=== PATIENT | female | born 1985 | race Caucasian/White ===

== ENCOUNTER 2025-02-20 10:14 | Emergency (ER) | payer OTHER, SELFPAY ==
--- NOTE | ~2025-02-20 | CT_ITS ---
EXAMINATION: CT brain wo con DATE: 02/20/2025 11:44 INDICATION: Hypertension. Headache. TECHNIQUE: Computed tomography (CT) of the head was performed without intravenous contrast. Sagittal and coronal reconstructions were performed. Automated exposure control and iterative reconstruction t echnique were employed. The dose-length product was 605.33 mGy-cm. COMPARISON: None FINDINGS: No acute intracranial hemorrhage, acute infarction or abnormal extra axial fluid collection. Ventricl es are normal and symmetric. No mass/mass effect. The orbits, paranasal sinuses and mastoid air cells are normal. IMPRESSION: 1. Normal head CT. Reviewed, dictated and finalized at location A. IMPRESSION: 1. Normal head CT.
--- NOTE | ~2025-02-20 | XR_ITS ---
CHEST RADIOGRAPH, PA AND LATERAL CLINICAL HISTORY: concern for CHF . COMPARISON: None available TECHNIQUE: PA and lateral views of the chest. FINDINGS The cardiomediastinal silhouette is unremarkable. The lungs are clear. IMPRESSION: No focal infiltrate or effusion. Reviewed, dictated and finalized at location A.
[2025-02-20 10:26] VITALS: BP 236/130; PULSE 74; RESP 18; TEMP 36.9; O2SAT 100
--- OUTSIDE RECORDS SUMMARY | 2025-02-20 10:30 | XMS_ITS | Clinical Summary ---
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 Role Phone None, Provider MD Primary Care Provider Unavaila ble Allergies Active Allergy Reactions Criticality Noted Date Comments Magnesium Sulfate Hives 01/09/2018 Morphine Vomiting 01/09/2018 Medications No known medications Family History Medical History Relation Comments Cancer Father lymph node and b [place] Heart Disease Father Hypertension Father Heart Disease Mother Relation Status Comments Father Alive Mother Alive Social History Tobacco Use Types Packs/Day Years Used Date Smoking Tobacco: Every Day Cigarettes Smokeless Tobacco: Never Alcohol Use Standard Drinks/Week Comments Not Currently 0 (1 standard drink = 0.6 oz pur e alcohol) Comments No Sex and Gender Information Value Date Recorded Sex Assigned at Not on file Legal Sex Female 7:29 PM CDT Gender Identity Not on file Sexual Orientation Not on file Last Filed Vital Signs Vital Sign Reading Time Taken Comments Blood Pressure 179/103 06/23/2021 11:17 AM CDT Pulse 76 06/23/2021 11:17 AM CDT Temperature 36.4 C (97.5 F) 06/23/2021 11:17 AM CDT Respiratory Rate 16 06/23/2021 11:17 AM CDT Oxygen Saturation 100% 06/23/2021 11:17 AM CDT Inhaled Oxygen Concentration - - Weight 83.9 kg (185 lb) 06/23/2021 11:17 AM CDT Height 167.6 cm (5' 6) 06/23/2021 11:17 AM CDT Body Mass Index 29.86 06/23/2021 11:17 AM CDT Plan of Treatment Health Maintenance Due Date Last Done Comments Cervical Cancer Screening Pa p Smear (Age 30 to 64) Every 3 Years 1985 Annual Physical 1988 Hepatitis C 12/27/2003 DTaP, Tdap and Td Vaccines ( 1 - Tdap) 2004 Hepatitis B Vaccines (1 of 3 - 19+ 3-dose series) 2004 Pneumococcal Vaccine: Pediat rics (0 to 5 Years) and At-Risk Patients (6 to 49 Years) (1 of 2 - PCV) 2004 Cervical Cancer Screening Pa p with HPV Testing (Age 30 to 64) Every 5 Years 12/27/2015 Cervical Cancer Screening with HPV 12/27/2015 COVID-19 Vaccine (1 - 2023-2 5 season) 2024 HPV Vaccines Aged Out No longer eligi ble based on patient's age to complete this topic Meningococcal B Vaccine Aged Out No l onger eligible based on patient's age to complete this topic Meningococcal Vaccine Aged Out No conrad kiersten eligible based on patient's age to complete this topic RSV Immunizations Under 20 Months Aged Out No longer eligible based on patient's age to complete this topic Insurance [employer] Care Teams Ice Hockey Coach Relationship Specialty Start Date End Date None, Provider, PCP - General 06/23/21
--- OUTSIDE RECORDS SUMMARY | 2025-02-20 10:30 | XMS_ITS | Clinical Summary ---
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 Gender Identity Not on file Sexual Orientation Not on file Plan of Treatment Health Maintenance Due Date Last Done Comments Hepatitis C Virus (HCV) Screening 1985 Hepatitis B Immunization (1 of 3 - 19+ 3-dose series) 2004 Pap Smear 2006 Cervical Cancer Screening (CCS) 12/27/2015 HPV/Cotest 12/27/2015 Influenza Immunization (#1) 2024 SARS-COV-2 Immunization ( season) 2024 Respiratory Syncytial Virus (RSV) Immunization (Adult) (1 - 1-dose 75+ series) 2060 DTaP/Tdap/Td Immunization Discontinued 03/16/2017 TdaP Immunization Completed 03/16/2017 Meningococcal Immunization (ACWY) Aged Out No longer eligible based on patient's age to complete this topic Pneumococcal Immunization Combined Aged Out No longer eligible b ased on patient's age to complete this topic Rotavirus Immunization Aged Out No lo nger eligible based on patient's age to complete this topic
--- OUTSIDE RECORDS SUMMARY | 2025-02-20 10:30 | XMS_ITS | Encounter Summary ---
Author Organization [facility] Care Team Providers Care Account Director Name Role Phone No, Physician Primary Care Provider [phone] Leola Newell MD Primary Care Provider [phone] Marianne Kovacs MD, Miguel Hale Primary Care Provide r Encounter Details Date Type Department Care Team (Latest Contact Info) Description 09/14/2016 Orders Only [facility] Provider, MD Nahid [address] [place] [id number] Social History Tobacco Use Types Packs/Day Years Used Date Smoking Tobacco: Never Assessed Comments Unknown Sex and Gender Information Value Date Recorded Sex Assigned at Not on file 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 Historical Provider Final Res ult documented in this encounter Visit Diagnoses Not on filedocumented in this encounter Care Teams Account Director Relationship Specialty Start Date End Date No, Physician PCP - General 06/24/21 06/24/21 Leola Newell MD [address] [place] [id number] PCP - General Internal Medicine 06/25/21 05/26/22 Miguel Lopes Jr., MD [address] [place] [id number] PCP - General Internal Medicine 05/27/22 documented as of this encounter
--- OUTSIDE RECORDS SUMMARY | 2025-02-20 10:30 | XMS_ITS | Clinical Summary ---
Author Organization [facility] Address [address] [place] [address] Care Team Providers Care Monologist Name Role Phone Marianne Kovacs MD, Miguel Hale Primary Care Provide r Allergies Active Allergy Reactions Criticality Noted Date Comments Magnesium Sulfate Hives Medium 01/09/2018 Hives Morphine Hives,Nausea And Vom iting,Shortness of breath,Urticaria,Vomiting High 12/09/2016 Hives Medications HYDROcodone-acetami nophen (NORCO) 7.5-325 mg per tablet 2 Active gabapentin (NEURONTIN) 300 mg capsule Take 1 capsule (300 mg total) by mouth 3 (three) times a day 30 capsule 1 2 Active ondansetron ODT (ZOFRAN-ODT) 4 mg disintegrating tablet Take 1 tablet (4 mg total) by mouth every 8 (eight) hours as needed for nausea or vomiting 20 tablet 2 Active cloNIDine (CATAPRES) 0.2 mg tablet Take 1 tablet (0.2 mg total) by mouth daily 20 tablet 2 Active losartan-hydrochlor othiazide (HYZAAR) 100-25 mg per tabletIndications:H ypertension secondary to other renal disorders Take 1 tablet by mouth daily 30 tablet 11 2 Active ketorolac (TORADOL) 10 mg tablet Take 1 tablet (10 mg total) by mouth every 6 (six) hours as needed for pain 10 tablet 5 Active lidocaine (LIDODERM) 5 % Place 1 patch on the skin daily for 12 hours Remove & discard patch within 12 hours or as directed by MD. 7 patch 5 Active Active Problems Problem Noted Date Diagnosed Date Lung nodules 05/20/2022 Assessment & Plan (05/20/2022 11:01 AM CDT): Awaiting gateway records to determine next step. This is reported by pt. Downing 05/20/2022 Assessment & Plan (05/20/2022 11:01 AM CDT): Diagnosed in ed yest, agree with dx, vesicles are apparent on physical exam Pain is /10, norco makes her too nauseous Doing steroids, gabapentin, zofran if she needs norco still Pain, dental 06/25/2021 Assessment & Plan (06/25/2021 9:45 AM CDT): Referral placed for dentist examiend today- no s/s of active infection, advise she complete amoxicillin and see dentist [facility] Preventative health care 06/25/2021 Assessment & Plan (06/25/2021 9:45 AM CDT): utd on covid vax Got flu shot today Needs gyne- pap/iud replacement in next year flp ordered as well Respiratory system disease c omplicating in second trimester 03/11/2017 Uncomplicated asthma 03/11/2017 Pre-existing hypertension co mplicating in second trimester 01/07/2017 Tobacco smoking affecting in second tr imester 01/07/2017 Hx of preeclampsia, prior , currently p regnant 12/08/2016 Hypertension Assessment & Plan (05/20/2022 11:00 AM CDT): bp today is elevated but not dangerous Given rx for clonidine and instructed to use if bp is >160 on the top. She currently is in a lot of pain so I feel this is why she was so elevated in ED yesterday. [place] er papers were received after our appt and reviewed and cecil documented in an additional note dated today Losartan 100 mg cont Needs to be seen soon (lost to follow up last year) for bp check- 1 month advised. Assessment & Plan (06/25/2021 9:40 AM CDT): Lisinopril 5 mg/da started yesterday- increase to 10 mg/da Cr/k in 2 weeks Referral placed by er to Dr. Perea- agree with assessment and management of pts self history of PCKD. Hematuria Assessment & Plan (06/25/2021 9:41 AM CDT): occ gross- microscopic yest Sounds related to PCKD, but may need uro work up dependin frieda renal assessment Polycystic kidney disease Assessment & Plan (06/25/2021 9:42 AM CDT): Referral to Dr. Perea for imaging, further management Prior imaging from 2012 w/kidney cyts, pt has had imaging since, but not sure where done. Encounters Date Type Department Care Team Description 02/01/2025 11:45 AM CDT - 02/01/2025 1:37 PM CDT Emergency [facility] Emergency Department [address] [place] [id number] Acute right-sided thoracic back pain (Primary Dx); Elevated blood pressure reading; Cyst of right ovary Discharge Disposition: Discharge to home or self care from Last 3 Months Immunizations Immunization Administration Dates Next Due Influenza, Quadrivalent, Spl it, Preservative Free, Intramuscular 06/25/2021 MMR 01/01/1993 Moderna SARS-CoV-2 Monovalent Vaccination (12+ Y RS) 05/03/2021,04/06/2021 Tdap 03/16/2017 Surgical History Surgery Date Site/Laterality Comments GALLBLADDER SURGERY APPENDECTOMY ECTOPIC SURGERY Medical History Medical History Date Comments Polycystic kidney disease Hypertension Family History Medical History Relation Name Comments Breast cancer Father Hypertension Father Kidney disease Father COPD Mother Heart disease Mother Hypertension Mother Relation Name Status Comments Father Alive Mother Alive Social History Tobacco Use Types Packs/Day Years Used Date Smoking Tobacco: Every Day Cigarettes Smokeless Tobacco: Never Tobacco Cessation:Ready to Q uit: Yes; Counseling Given: Yes AUDIT-C Answer Date Recorded Q1: How often do you have a drink containing alc ohol? Monthly or less 05/27/2022 Q2: How many drinks containi ng alcohol do you have on a typical day when you are drinking? 1 or 2 05/27/2022 Q3: How often do you have si x or more drinks on one occasion? Never 05/27/2022 PHQ-2 Answer Date Recorded PHQ-2 Total Score 1 06/25/2021 Personal Safety Answer Date Recorded Have you ever been in or are you currently in a harmful physical or emotional relationship or is someone making you feel afraid or unsafe? Denies 02/01/2025 Comments No Sex and Gender Information Value Date Recorded Sex Assigned at Not on file Legal Sex Female 5:21 AM [employer] Gender Identity Not on file Sexual Orientation Not on file Obstetrics History Para Term AB IAB SAB Ectopic Multiple Livin g Live Births 6 2 2 4 2 1 3 3 Date Outcome GA Total Labor Labor/2nd/3rd Weight Sex Type Anes PTL Loli A1 A5 Name Clin 2002 AB 2004 Ectopic 6 Term 40w 0d 3.572 kg (7 lb 14 oz) F Complications:Pre eclampsia 2007 SAB 5w0 d 8 Term 40w 0d 3.487 kg (7 lb 11 oz) M Complications:Pre eclampsia 2015 SAB Last Filed Vital Signs Vital Sign Reading Time Taken Comments Blood Pressure 160/98 02/01/2025 1:30 PM CDT Pulse 77 02/01/2025 1:30 PM CDT Temperature 37 C (98.6 F) 02/01/2025 11:07 AM CDT Respiratory Rate 16 02/01/2025 1:30 PM CDT Oxygen Saturation 95% 02/01/2025 1:30 PM CDT Inhaled Oxygen Concentration - - Weight 96.3 kg (212 lb 4.9 oz) 02/01/2025 11:07 AM CDT Height 167.6 cm (5' 6) 05/27/2022 11:36 AM CDT Body Mass Index 34.27 05/27/2022 11:36 AM CDT Plan of Treatment Health Maintenance Due Date Last Done Comments Breast Cancer Screening-Mammogram 1985 Cervical Cancer Screening 1985 Hepatitis C Screening 1985 Hepatitis B Screening 12/27/2003 Pneumococcal vaccine <65 (1 of 2 - PCV) 2004 Depression Screening 06/25/2022 06/25/2021 Regular Well Visit/Exam 18-64 08/11/2022 08/11/2021, 06/25/2021 Covid-19 Vaccine ( season) 2024 05/03/2021, 04/06/2021 Influenza Vaccine (#1) 2025 06/25/2021 DTaP/Tdap/Td Vaccine (2 - Td or Tdap) 03/16/2027 03/16/2017 HPV Vaccines Aged Out No longer eligi ble based on patient's age to complete this topic Varicella Vaccines Discontinued Procedures Procedure Name Priority Date/Time Associated Diagnosis Comments CT ABDOMEN PELVIS WO CONTRAST ED 02/01/2025 12:30 PM CDT POCT HCG, URINE Routine 02/01/2025 11:45 AM CDT EGFR STAT 02/01/2025 11:22 AM CDT URINALYSIS, MICROSCOPIC ONLY STAT 02/01/2025 11:22 AM CDT DIFFERENTIAL AUTO STAT 02/01/2025 11: 22 AM CDT COMPREHENSIVE METABOLIC PANEL STAT 02/01/2025 11:22 AM CDT CBC WITH AUTO DIFFERENTIAL STAT 02/01/2025 11:22 AM CDT URINALYSIS AND REFLEX TO MICROSCOPIC AND CULTURE STAT 02/01/2025 11:22 AM CDT from Last 3 Months Results * CT Abdomen Pelvis WO Contrast (02/01/2025 12:30 PM CDT) Anatomical Region Laterality Modality Body N/A Computed Tomogra phy 02/01/2025 12:4 4 PM CDT Narrative 02/01/2025 12:48 PM CDT EXAM DESCRIPTION: CT ABDOMEN PELVIS WO CONTRAST REASON FOR STUDY: Abdominal/flank pain, stone suspected hx of Polycystic kidney disease type B not on dialysis, endorsing low back pain my kidneys x approx 24 hours. Denies urinary symps. TECHNIQUE: CT scan of the abdomen and pelvis performed without intravenous and without oral contrast using helical scanning technique. Reconstructed coronal and sagittal MPR images reviewed. All images stored on PACS. Automated exposure control was used as a dose optimization technique for this examination. COMPARISON: None FINDINGS: The sensitivity for detection of visceral lesions is diminished without the use of intravenous contrast. LOWER CHEST: The heart size is upper limits of normal. There is no definite evidence of pericardial effusion. There are minimal atherosclerotic changes of the aorta. The visualized lung bases are grossly clear. There is small hiatal hernia. LIVER: The liver is grossly normal in size and contour. GALLBLADDER: Surgically absent. BILE DUCTS: No intrahepatic or extrahepatic ductal dilatation. SPLEEN: The spleen is grossly normal in size and unremarkable. PANCREAS: The pancreas has a grossly unremarkable unenhanced CT appearance. ADRENALS: The bilateral adrenal glands are grossly symmetrical and unremarkable. KIDNEYS/URINARY TRACT: There is no definite unenhanced CT evidence of a focal renal lesion. There is no definite evidence of nephrolithiasis. There is no definite evidence of hydronephrosis or hydroureter. There is mild mucosal thickening of the urinary bladder. GI: There is no definite evidence of a bowel obstruction. The appendix is surgically absent. There are scattered colonic diverticula without definite evidence of diverticulitis. There is mild mucosal thickening of the transverse colon, descending colon, and sigmoid colon. There is a fat containing supraumbilical ventral abdominal wall hernia with the abdominal wall defect measuring 1.8 cm. There is no definite evidence of free air or fluid in the abdomen and pelvis. There is no definite unenhanced CT evidence of lymphadenopathy in the abdomen and pelvis. REPRODUCTIVE: There is an intrauterine device noted in the uterus. There are likely follicular changes of the bilateral ovaries. There is a dominant follicle or cyst in the right ovary measuring 1.6 cm. There is a dominant follicle or cyst in the left ovary measuring 1.3 cm. MUSCULOSKELETAL: There are mild degenerative changes of the spine. OTHER: No other abnormality. IMPRESSION: 1. No definite evidence of obstructive uropathy or nephrolithiasis. 2. Mild mucosal thickening of the urinary bladder, which may be related to underdistention versus cystitis. Clinical correlation with urinary analysis is recommended as clinically indicated. 3. No definite evidence of bowel obstruction. 4. Mild mucosal thickening of the transverse colon, descending colon, and sigmoid colon, which is likely related to underdistention and less likely mild colitis of infectious or inflammatory etiology. 5. Scattered colonic diverticula without definite evidence of diverticulitis. 6. Bilateral ovarian dominant follicles or cysts measuring up to 1.6 cm on the right and 1.3 cm on the left. THIS IS AN ELECTRONICALLY VERIFIED FINAL REPORT 02/01/2025 12:48 PM - Electronically signed by Eve Lyons D.O. PS: PS Report ID: [id number] Reading Location: [place] [address] Procedure Note Eve Lyons, DO - 02/01/2025 EXAM DESCRIPTION: CT ABDOMEN PELVIS WO CONTRAST REASON FOR STUDY: Abdominal/flank pain, stone suspected hx of Polycystic kidney disease type B not on dialysis, endorsing lowback pain my kidneys x approx 24 hours. Denies urinary symps. TECHNIQUE: CT scan of the abdomen and pelvis performed without intravenousand without oral contrast using helical scanning technique. Reconstructed coronal and sagittal MPR images reviewed. All images stored on PACS.Automated exposure control was used as a dose optimization technique for this examination. COMPARISON: None FINDINGS: The sensitivity for detection of visceral lesions is diminished without the use of intravenous contrast. LOWER CHEST: The heart size is upper limits of normal. There is nodefinite evidence of pericardial effusion. There are minimal atheroscleroticchanges of the aorta. The visualized lung bases are grossly clear. There issmall hiatal hernia. LIVER: The liver is grossly normal in size and contour. GALLBLADDER: Surgically absent. BILE DUCTS: No intrahepatic or extrahepatic ductal dilatation. SPLEEN: The spleen is grossly normal in size and unremarkable. PANCREAS: The pancreas has a grossly unremarkable unenhanced CTappearance. ADRENALS: The bilateral adrenal glands are grossly symmetrical and unremarkable. KIDNEYS/URINARY TRACT: There is no definite unenhanced CT evidence of a focal renal lesion. There is no definite evidence of nephrolithiasis.There is no definite evidence of hydronephrosis or hydroureter. There is mild mucosal thickening of the urinary bladder. GI: There is no definite evidence of a bowel obstruction. The appendixis surgically absent. There are scattered colonic diverticula withoutdefinite evidence of diverticulitis. There is mild mucosal thickening of the transverse colon, descending colon, and sigmoid colon. There is a fat containing supraumbilical ventral abdominal wall hernia with the abdominal wall defect measuring 1.8 cm. There is no definite evidence of free airor fluid in the abdomen and pelvis. There is no definite unenhanced CTevidence of lymphadenopathy in the abdomen and pelvis. REPRODUCTIVE: There is an intrauterine device noted in the uterus.There are likely follicular changes of the bilateral ovaries. There is adominant follicle or cyst in the right ovary measuring 1.6 cm. There is a dominant follicle or cyst in the left ovary measuring 1.3 cm. MUSCULOSKELETAL: There are mild degenerative changes of the spine. OTHER: No other abnormality. IMPRESSION: 1. No definite evidence of obstructive uropathy or nephrolithiasis. 2. Mild mucosal thickening of the urinary bladder, which may be relatedto underdistention versus cystitis. Clinical correlation with urinaryanalysis is recommended as clinically indicated. 3. No definite evidence of bowel obstruction. 4. Mild mucosal thickening of the transverse colon, descending colon,and sigmoid colon, which is likely related to underdistention and less likelymild colitis of infectious or inflammatory etiology. 5. Scattered colonic diverticula without definite evidence ofdiverticulitis. 6. Bilateral ovarian dominant follicles or cysts measuring up to 1.6 cmon the right and 1.3 cm on the left. THIS IS AN ELECTRONICALLY VERIFIED FINAL REPORT 02/01/2025 12:48 PM - Electronically signed by Eve Lyons D.O. PS: PS Report ID: [id number] Reading Location: [place] [address] [address] IMG CT PROCEDURES Final Result * POCT hCG, urine (02/01/2025 11:45 AM CDT) [facility] HCG, ur, POC Negative Negative Lot Number [id number] QC Backgroud Clear Acceptable QC Control Line Acceptable Urine 02/01/2025 11:4 5 AM CDT us Malinda CARVALHO POINT OF CARE TEST ORDERABLES F inal Result * eGFR (02/01/2025 11:22 AM CDT) [facility] eGFR >90 >=60 mL/min/1. 73 m2 Comment: Interpretive Data Reference Interval Normal >/= 90 mL/min/1.73m2 Mildly decreased* 60 - 89 mL/min/1.73m2 Mildly to moderately decreased 45 - 59 mL/min/1.73m2 Moderately to severely decreased 30 - 44 mL/min/1.73m2 Severely decreased 15 - 29 mL/min/1.73m2 Kidney Failure < 15 mL/min/1.73m2 *Relative to young adult level Estimated glomerular filtration rate is determined by the 2020 CKD-EPI equation recommended by the [employer] (A Unifying Approach to GFR Estimation: Recommendations of the NKF-ASK Task Force on Reassessing the Inclusion of Race in Diagnosing Kidney Disease, JASN 2020). The CKD-EPI equation should not be used for patients with unstable renal function and has not been validated in children and those over 70. Current interpretive data was last reviewed 2021. Testing performed by: [address] [address] Blood 02/01/2025 11:2 2 AM CDT 02/01/2025 11:26 AM CDT us Malinda CARVALHO LAB BLOOD ORDERABLES Final Resu lt MARS [address] [facility] [place] [address] * Differential, auto (02/01/2025 11:22 AM CDT) Neutrophil abs 4.84 1.50 - 6.50 K/cumm Comment:Testing performed by : [address] [address] Imm gran abs 0.04 0.00 - 0.10 K/cumm MARS HERNANDEZ Comment:Testing performed by : [address] [address] Lymphocyte abs 2.30 0.80 - 3.30 K/cumm MARS HERNANDEZ Comment:Testing performed by : [address] [address] Monocyte abs 0.54 0.20 - 0.80 K/cumm MARS HERNANDEZ Comment:Testing performed by : [address] [address] Eosinophil abs 0.17 0.00 - 0.50 K/cumm [facility] Comment:Testing performed by : [address] [address] Basophil abs 0.04 0.00 - 0.10 K/cumm [facility] Comment:Testing performed by : [address] [address] Neutrophil pct 61.1 % [facility] Comment: Interpretive Data Percent cell count reference ranges are not reported, since discordance with absolute values may lead to misinterpretation of CBC data. Current Interpretive Data was last revised on 2017. Testing performed by: [address] [address] Imm gran pct 0.5 % [facility] Comment: Interpretive Data Percent cell count reference ranges are not reported, since discordance with absolute values may lead to misinterpretation of CBC data. Current Interpretive Data was last revised on 2017. Testing performed by: [address] [address] Lymphocyte pct 29.0 % [facility] Comment: Interpretive Data Percent cell count reference ranges are not reported, since discordance with absolute values may lead to misinterpretation of CBC data. Current Interpretive Data was last revised on 2017. Testing performed by: [address] [address] Monocyte pct 6.8 % [facility] Comment: Interpretive Data Percent cell count reference ranges are not reported, since discordance with absolute values may lead to misinterpretation of CBC data. Current Interpretive Data was last revised on 2017. Testing performed by: [address] [address] Eosinophil pct 2.1 % [facility] Comment: Interpretive Data Percent cell count reference ranges are not reported, since discordance with absolute values may lead to misinterpretation of CBC data. Current Interpretive Data was last revised on 2017. Testing performed by: [address] [address] Basophil pct 0.5 % [facility] Comment: Interpretive Data Percent cell count reference ranges are not reported, since discordance with absolute values may lead to misinterpretation of CBC data. Current Interpretive Data was last revised on 2017. Testing performed by: [address] [address] Blood 02/01/2025 11:2 2 AM CDT 02/01/2025 11:26 AM CDT Malinda CARVALHO LAB BLOOD ORDERABLES Final Resu lt M[facility] [address] [facility] Department [place] [address] * (ABNORMAL) Urinalysis reflex to microscopic and culture Urine (02/01/2025 11:22 AM CDT) Color, ur Yellow Yellow Comment:Testing performed by : [address] [address] Clarity, ur Clear Clear MARS Comment:Testing performed by : [address] [address] Specific gravity, ur 1.008 1.003 - 1.030 MARS Comment:Testing performed by : [address] [address] pH, urine 7.0 MARS Comment: Interpretive Data U rine pH is affected by diet, medications, systemic acid-base disturbances, and renal tubular function. pH may affect urinary stone formation. For example, urine pH below 6.0 may help reduce the tendency for calcium phosphate stones and pH greater than 6.0 may reduce the tendency for uric acid stone formation. Source: [facility] [employer] Current Interpretive Data was last revised on 2017 Testing performed by: [address] [address] Protein, ur ql Negative Negative MARS Comment:Testing performed by : [address] [address] Glucose, ur ql Negative Negative MARS Comment:Testing performed by : [address] [address] Ketones, ur Negative Negative MARS Comment:Testing performed by : [address] [address] Bilirubin, ur Negative Negative MARS HERNANDEZ Comment:Testing performed by : [facility], [address] [place] [address], [place]., [address] Blood, ur 2+(A) Negative MARS HERNANDEZ Comment:Testing performed by : [address], [place]., [address] Urobilinogen, ur <2.0 <2.0 mg/dL MARS HERNANDEZ Comment:Testing performed by : [address], [place]., [address] Nitrite, ur Negative Negative MARS HERNANDEZ Comment:Testing performed by : [address], [place]., [address] Leukocyte esterase, ur Negative Negative MARS HERNANDEZ Comment:Testing performed by : [address] [address] UA reflex comment Reflex to microscopic UA will be performed. MARS HERNANDEZ Comment:Testing performed by : [address] [address] Urine 02/01/2025 11:2 2 AM CDT 02/01/2025 11:26 AM CDT Malinda CARVALHO LAB MICROBIOLOGY - GENERAL MARCEL EASTON Final Result [facility] [address] [facility] Department of Laboratories [place], [place] [id number] * CBC with auto differential (02/01/2025 11:22 AM CDT) Pathologist [facility] WBC 7.93 3.80 - 9.90 K/cumm Comment:Testing performed by : [address] [address] Hgb 13.7 11.9 - 15.5 g/dL MARS HERNANDEZ Comment:Testing performed by : [address] [address] Hct 40.8 35.6 - 45.5 % MARS HERNANDEZ Comment:Testing performed by : [address] [address] Plt 250 150 - 400 K/cumm MARS HERNANDEZ Comment:Testing performed by : [address] [address] MPV 11.3 9.1 - 12.3 fL MARS HERNANDEZ Comment:Testing performed by : [address] [address] RBC 4.28 3.90 - 5.20 M/cumm MARS HERNANDEZ Comment:Testing performed by : [address] [address] MCV 95.3 81.3 - 96.4 fL MARS Comment:Testing performed by : [address] [address] MCH 32.0 27.1 - 33.3 pg MARS HERNANDEZ Comment:Testing performed by : [address] [address] MCHC 33.6 32.3 - 35.7 g/dL MARS Comment:Testing performed by : [address] [address] RDW CV 12.5 11.1 - 14.9 % MARS Comment:Testing performed by : [address] [address] RDW SD 43.5 35.7 - 48.1 fL MARS Comment:Testing performed by : [address] [address] NRBC abs 0.00 0.00 - 0.01 K/cumm MARS Comment:Testing performed by : [address], [address] Blood 02/01/2025 11:2 2 AM CDT 02/01/2025 11:26 AM CDT us Malinda CARVALHO LAB BLOOD ORDERABLES Final Resu lt MARS HERNANDEZ [address] [facility] Department [place] [address] * (ABNORMAL) Urinalysis, microscopic only (02/01/2025 11:22 AM CDT) WBC, ur 0-5 0 - 5 /HPF Comment:Testing performed by : [address] [address] RBC, ur 6-10(A) 0 - 2 /HPF MARS HERNANDEZ Comment:Testing performed by : [address] [address] Epithelial cells, squamous, ur >50(A) 0 - 5 /HPF MARS HERNANDEZ Comment:Testing performed by : [address] [address] Culture Reflex Comment Reflex conditions for urine culture (WBC >10) not met. MARS HERNANDEZ Comment:Testing performed by : [address], [place]., [address] Urine 02/01/2025 11:2 2 AM CDT 02/01/2025 11:26 AM CDT us Malinda CARVALHO LAB URINE ORDERABLES Final Resu lt MARS [address] Department [place] [address] * Comprehensive metabolic panel (02/01/2025 11:22 AM CDT) Sodium 139 135 - 145 mmol/L Comment:Testing performed by : [address] [address] Potassium, pl 4.0 3.3 - 4.9 mmol/L MARS HERNANDEZ Comment:Testing performed by : [address] [address] Chloride 104 97 - 110 mmol/L MARS Comment:Testing performed by : [address] [address] CO2 26 22 - 32 mmol/L MARS HERNANDEZ Comment:Testing performed by : [address] [address] Anion gap 9 2 - 15 mmol/L MARS HERNANDEZ Comment:Testing performed by : [address] [address] BUN 12 6 - 25 mg/dL MARS HERNANDEZ Comment:Testing performed by : [address] [address] Creatinine 0.67 0.60 - 1.10 mg/dL MARS Comment:Testing performed by : [address] [address] Glucose 95 70 - 199 mg/dL MARS Comment: Interpretive Data Fasting glucose >/= 126 mg/dl is diagnostic for diabetes. Fasting is defined as no caloric intake for at least 8 hours. Fasting glucose between 100 mg/dl to 125 mg/dl is diagnostic of prediabetes. In a patient with classic symptoms of hyperglycemia or hyperglycemic crisis, a random glucose >/= 200 mg/dl is diagnostic for diabetes. In the absence of unequivocal hyperglycemia, results should be confirmed by repeat testing. The classification and Diagnosis of Diabetes Diabetes Care 2021; 46: S19-S40. Current interpretive data was last revised 2022. Testing performed by: [address] [address] Calcium 9.2 8.5 - 10.3 mg/dL MARS Comment:Testing performed by : [address] [address] Bilirubin, total 0.6 0.1 - 1.2 mg/dL [facility] Comment:Testing performed by : [address] [address] Protein, pl 7.1 6.5 - 8.5 g/dL [facility] Comment:Testing performed by : [address] [address] Albumin 4.3 3.5 - 5.0 g/dL [facility] Comment:Testing performed by : [address] [address] Alk phos 79 40 - 130 Units/L MARS Comment:Testing performed by : [address] [address] ALT 16 7 - 45 Units/L MARS Comment:Testing performed by : [address] [address] AST 17 10 - 45 Units/L MARS Comment:Testing performed by : [address] [address] Blood 02/01/2025 11:2 2 AM CDT 02/01/2025 11:26 AM CDT Malinda CARVALHO LAB BLOOD ORDERABLES Final Resu lt MARS [address] [facility] [place] [address] from Last 3 Months Insurance Care Teams Monologist Relationship Specialty Start Date End Date iMguel Lopes Jr., MD [address] [place] [id number] PCP - General Internal Medicine 05/27/22
--- OUTSIDE RECORDS SUMMARY | 2025-02-20 10:30 | XMS_ITS | Continuity of Care Document ---
Author Organization [facility] Address [address] [facility] [address] [place] [address] Phone Care Team Providers Care Tester Food Products Name Role Phone Song OD, Dheeraj Unavailable Unavailable Advance Directives Directive Yes / No Effective Date File Name No Information Encounters Encounter Description Practice Location Reason(s) For Visit Diagnoses Date Provider Providers Copied on Encounter [facility] [place] [facility], [address], [place], [place], [id number], [place] tel:[phone] [facility] No Information Oct-0 9-200 2 Song OD Dheeraj. [address] , [address], [place], [address], [place]. tel:[phone] Family History Family Member Type Diagnosis Age At Onset No Information Payers Payer name Insurance type Covered republican ID Authoriza tiadriana(s) [facility] Commercial CI [id number] Social History Type Description Quantity Date Captured Comments Sex Female Smoking Status No Information Chief Complaint And Reason For Visit No Information Reason For Referral Reason For Referral No Information History Of Present Illness Encounter Date Complaint History Of Prese nt Illness No Information Functional Status Date Functional Assessmen t No Information Instructions Date Instruction Additional Infor mation No Information Assessments Type Assessment Date No Information Patient Care Teams Name Effective Dates (start - stop) Status Members No Information
--- OUTSIDE RECORDS SUMMARY | 2025-02-20 10:30 | XMS_ITS | Clinical Summary ---
Author Organization [facility] [employer] Address [address] [place] [address] Care Team Providers Care Radiator Tester Name Role Phone Unavailable Primary Care Provider Unavailabl e Source Comments [facility] [employer],non-owned Affiliates and Associated Physician Practices is amultiple site organization consisting of ambulatory clinics and hospital sitesin [place], [place], [place] and [place]. This disclosure is being madepursuant to the Care Everywhere program and may not contain all information available regarding this patient. Last updated 18.[facility] [employer] Allergies Active Allergy Reactions Criticality Noted Date Comments Morphine Urticaria,Shortness of Breath,Nausea and/or Vomiting High 12/09/2016 Medications * Be aware that medications may not be up to date on this document. Alwaysverify current medications with the patient. Vit-Fe Fumarate-FA ( VITAMIN) 28-0.8 MG tablet Take 1 Tab by mouth once daily Active aspirin (ASPIRIN) 81 MG chew tablet Take 81 mg by mouth once daily Active albuterol HFA (PROVENTIL;TALYA NIRALI;PROAIR) 108 (90 BASE) MCG/ACT inhaler Inhale 2 Puffs by mouth every 6 hours as needed Active Active Problems Problem Noted Date Diagnosed Date Respiratory system disease c omplicating in second trimester 03/11/2017 Encounter for ultrasound to check growth 0 03/11/2017 Uncomplicated asthma 03/11/2017 Pre-existing hypertension co mplicating in second trimester 01/07/2017 Tobacco smoking affecting in second tr imester 01/07/2017 Polycystic kidney disease 12/08/2016 Hx of preeclampsia, prior , currently p regnant 12/08/2016 Hematuria 12/08/2016 Family History Medical History Relation Name Comments Hypertension Brother Hypertension Father Kidney Disease Father Stroke Father Bleeding Disorders Maternal Grandfather Diabetes Maternal Grandfather Heart Disease Maternal Grandfather Hypertension Maternal Grandfather Hypertension Maternal Grandmother Labor Maternal Grandmother Cancer Mother Hypertension Mother Labor Mother Genetic/Metabolic Disease Other Pa tient nephew from genetic disorder Twins Paternal Grandmother Relation Name Status Comments Brother Father Maternal Grandfather Maternal Grandmother Mother Other Paternal Grandmother Social History Tobacco Use Types Packs/Day Years Used Date Smoking Tobacco: Smoker, Current Status Unknown Cigarettes 0.5 12 Smokeless Tobacco: Never Alcohol Use Standard Drinks/Week Comments No 0 (1 standard drink = 0.6 oz pur e alcohol) Comments No Sex and Gender Information Value Date Recorded Sex Assigned at Not on file Legal Sex Female 9:35 AM CDT Gender Identity Not on file Sexual Orientation Not on file Last Filed Vital Signs Vital Sign Reading Time Taken Comments Blood Pressure 113/69 03/14/2017 1:14 PM CDT Pulse 81 03/14/2017 1:14 PM CDT Temperature 36.8 C (98.3 F) 02/28/2014 10:08 AM CDT Respiratory Rate 16 02/28/2014 10:08 AM CDT Oxygen Saturation 98% 02/28/2014 1:00 PM CDT Inhaled Oxygen Concentration - - Weight 80.3 kg (177 lb) 03/14/2017 1:14 PM CDT Height 167.6 cm (5' 6) 12/09/2016 10:47 AM CDT Body Mass Index 28.57 12/09/2016 10:47 AM CDT Plan of Treatment Health Maintenance Due Date Last Done Comments HIV SCREENING 2000 HEPATITIS C SCREENING 12/22/2003 DTAP/TDAP/TD VACCINES (1 - Tdap) 2004 HEPATITIS B VACCINE (1 of 3 - 19+ 3-dose series) 2004 PNEUMOCOCCAL VACCINE (1 of 2 - PCV) 2004 PAP SMEAR 2006 COVID-19 VACCINE (3 - 2023-2 5 season) 2024 05/03/2021, 04/06/2021 DEPRESSION SCREENING 08/22/2024 INFLUENZA VACCINE (Season Ended) 2025 06/25/2021 ZOSTER VACCINE (1 of 2) 12/27/2035 HIB VACCINE Aged Out No longer eligi ble based on patient's age to complete this topic HPV VACCINE Aged Out No longer eligi ble based on patient's age to complete this topic MENINGOCOCCAL (Group B) VACCINE SHARED DECISION-MAKING Aged Out No longer eligible based on patient's age to complete this topic MENINGOCOCCAL GROUPS A/C/Y/W VACCINE Aged Out No longer eligible b ased on patient's age to complete this topic Insurance [facility] Advance Directives Documents on File Type Date 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
--- OUTSIDE RECORDS SUMMARY | 2025-02-20 10:30 | XMS_ITS | Referral Summary ---
Author Organization [facility] Address [address] [place] [address] Care Team Providers Care Portable Irrigation Operator Name Role Phone Marianne Kovacs MD, Miguel Hale Primary Care Provide r Encounters Date Type Department Care Team Description 02/01/2025 11:45 AM CDT - 02/01/2025 1:37 PM CDT Emergency [facility] Emergency Department [address] [place] [address] Acute right-sided thoracic back pain (Primary Dx); Elevated blood pressure reading; Cyst of right ovary Discharge Disposition: Discharge to home or self care from Last 3 Months Allergies Active Allergy Reactions Criticality Noted Date [...] determine next step. This is reported by ptHalina Downing 05/20/2022 Assessment & Plan (05/20/2022 11:01 AM CDT): Diagnosed in ed yest, agree with dx, vesicles are apparent on physical exam Pain is 11/10, norco makes her too nauseous Doing steroids, gabapentin, zofran if she needs norco still Pain, dental 06/25/2021 Assessment & Plan (06/25/2021 9:45 AM CDT): Referral placed for dentist examiend today- no s/s of active infection, advise she complete amoxicillin and see dentist [facility] Preventative health care 06/25/2021 Assessment & [...] she was so elevated in ED yesterday. [facility] er papers were received after our appt [...] imaging since, but not sure where done. 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 PS: PS Report ID: [id number] Reading Location: [place] [address] Procedure Note Eve Lyons, DO - 02/01/2025 [...] Eve Lyons D.O. PS: PS Report ID: [id number] Reading Location: [place] [address] [address] PROCEDURES Final Result * POCT hCG, urine (02/01/2025 11:45 AM CDT) HCG, ur, POC Negative Negative Lot Number [id number] QC Backgroud Clear Acceptable QC Control Line Acceptable Urine 02/01/2025 11:4 5 AM CDT us Malinda CARVALHO POINT OF CARE TEST ORDERABLES F inal Result * eGFR (02/01/2025 11:22 AM CDT) eGFR >90 >=60 mL/min/1. 73 m2 Comment: [...] was last reviewed 2021. Testing performed by: [address] [address] Blood 02/01/2025 11:2 2 AM CDT 02/01/2025 11:26 AM CDT us Malinda CARVALHO LAB BLOOD ORDERABLES Final Resu lt [facility] [address] [facility] Department [place] [address] * Differential, auto (02/01/2025 11:22 AM CDT) Neutrophil abs 4.84 1.50 - 6.50 K/cumm Comment:Testing performed by : [address] [address] Imm gran abs 0.04 0.00 - 0.10 K/cumm [facility] Comment:Testing performed by : [address] [address] Lymphocyte abs 2.30 0.80 - 3.30 K/cumm [facility] Comment:Testing performed by : [address], [place]., [address] Monocyte abs 0.54 0.20 - 0.80 K/cumm [facility] Comment:Testing performed by : [address], [place]., [address] Eosinophil abs 0.17 0.00 - 0.50 K/cumm [facility] Comment:Testing performed by : [address] [address] Basophil abs 0.04 0.00 - 0.10 K/cumm [facility] Comment:Testing performed by : [address] [address] Neutrophil pct 61.1 % [facility] Comment: Interpretive Data Percent cell count reference ranges are not reported, since discordance with absolute values may lead to misinterpretation of CBC data. Current Interpretive Data was last revised on 2017. Testing performed by: [address] [address] Imm gran pct 0.5 % [facility] Comment: Interpretive Data Percent cell count reference ranges are not reported, since discordance with absolute values may lead to misinterpretation of CBC data. Current Interpretive Data was last revised on 2017. Testing performed by: [address] [address] Lymphocyte pct 29.0 % [facility] Comment: Interpretive Data Percent cell count reference ranges are not reported, since discordance with absolute values may lead to misinterpretation of CBC data. Current Interpretive Data was last revised on 2017. Testing performed by: [address] [address] Monocyte pct 6.8 % [facility] Comment: Interpretive Data Percent cell count reference ranges are not reported, since discordance with absolute values may lead to misinterpretation of CBC data. Current Interpretive Data was last revised on 2017. Testing performed by: [address] [address] Eosinophil pct 2.1 % MARS Comment: Interpretive Data Percent cell count reference ranges are not reported, since discordance with absolute values may lead to misinterpretation of CBC data. Current Interpretive Data was last revised on 2017. Testing performed by: [address] [address] Basophil pct 0.5 % MARS Comment: Interpretive Data Percent cell count reference ranges are not reported, since discordance with absolute values may lead to misinterpretation of CBC data. Current Interpretive Data was last revised on 2017. Testing performed by: [address] [address] Blood 02/01/2025 11:2 2 AM CDT 02/01/2025 11:26 AM CDT Malinda CARVALHO LAB BLOOD ORDERABLES Final Resu lt MARS [address] [facility] Department [place] [address] * (ABNORMAL) Urinalysis reflex to microscopic and culture Urine (02/01/2025 11:22 AM CDT) Color, ur Yellow Yellow Comment:Testing performed by : [address] [address] Clarity, ur Clear Clear MARS Comment:Testing performed by : [address] [address] Specific gravity, ur 1.008 1.003 - 1.030 MARS Comment:Testing performed by : [address] [address] pH, urine 7.0 MARS Comment: Interpretive Data U rine pH is affected by diet, medications, systemic acid-base disturbances, and renal tubular function. pH may affect urinary stone formation. For example, urine pH below 6.0 may help reduce the tendency for calcium phosphate stones and pH greater than 6.0 may reduce the tendency for uric acid stone formation. Source: [employer] Current Interpretive Data was last revised on 2017 Testing performed by: [facility], [address] [place] [address]., [address] Protein, ur ql Negative Negative MARS Comment:Testing performed by : [facility], [address] [place] [address], [place]., [address] Glucose, ur ql Negative Negative MARS Comment:Testing performed by : [address], [place]., [address] Ketones, ur Negative Negative MARS Comment:Testing performed by : [address], [place]., [address] Bilirubin, ur Negative Negative MARS Comment:Testing performed by : [address], [place]., [address] Blood, ur 2+(A) Negative MARS Comment:Testing performed by : [address], [place]., [address] Urobilinogen, ur <2.0 <2.0 mg/dL MARS Comment:Testing performed by : [facility], [address] [place] [address], [place]., [address] Nitrite, ur Negative Negative MARS Comment:Testing performed by : [address], [place]., [address] Leukocyte esterase, ur Negative Negative MARS Comment:Testing performed by : [address], [place]., [address] UA reflex comment Reflex to microscopic UA will be performed. MARS Comment:Testing performed by : [address] [address] Urine 02/01/2025 11:2 2 AM CDT 02/01/2025 11:26 AM CDT us Malinda CARVALHO LAB MICROBIOLOGY - GENERAL ORDE RUSTAM Final Result MARS HERNANDEZ [address] [facility] Department of Laboratories [place], [place] [id number] * CBC with auto differential (02/01/2025 11:22 AM CDT) WBC 7.93 3.80 - 9.90 K/cumm Comment:Testing performed by : [address], [address] Hgb 13.7 11.9 - 15.5 g/dL MARS Comment:Testing performed by : [address] [address] Hct 40.8 35.6 - 45.5 % MARS Comment:Testing performed by : [address] [address] Plt 250 150 - 400 K/cumm MARS Comment:Testing performed by : [address], [address] MPV 11.3 9.1 - 12.3 fL MARS Comment:Testing performed by : [address], [address] RBC 4.28 3.90 - 5.20 M/cumm MARS Comment:Testing performed by : [address], [address] MCV 95.3 81.3 - 96.4 fL MARS Comment:Testing performed by : [address], [address] MCH 32.0 27.1 - 33.3 pg MARS Comment:Testing performed by : [address], [address] MCHC 33.6 32.3 - 35.7 g/dL MARS Comment:Testing performed by : [address], [address] RDW CV 12.5 11.1 - 14.9 % MARS Comment:Testing performed by : [address], [address] RDW SD 43.5 35.7 - 48.1 fL MARS Comment:Testing performed by : [address], [address] NRBC abs 0.00 0.00 - 0.01 K/cumm MARS Comment:Testing performed by : [address], [address] Blood 02/01/2025 11:2 2 AM CDT 02/01/2025 11:26 AM CDT Malinda CARVALHO LAB BLOOD ORDERABLES Final Resu lt Performing Organization Address [facility] de Phone Number MARS [address] [place] [address] * (ABNORMAL) Urinalysis, microscopic only (02/01/2025 11:22 AM CDT) WBC, ur 0-5 0 - 5 /HPF Comment:Testing performed by : [address] [address] RBC, ur 6-10(A) 0 - 2 /HPF MARS Comment:Testing performed by : [address] [address] Epithelial cells, squamous, ur >50(A) 0 - 5 /HPF MARS Comment:Testing performed by : [address] [address] Culture Reflex Comment Reflex conditions for urine culture (WBC >10) not met. MARS Comment:Testing performed by : [address] [address] Urine 02/01/2025 11:2 2 AM CDT 02/01/2025 11:26 AM CDT Malinda CARVALHO LAB URINE ORDERABLES Final Resu lt Performing Organization Address [facility] de Phone Number MAYTE[address] [address] * Comprehensive metabolic panel (02/01/2025 11:22 AM CDT) Sodium 139 135 - 145 mmol/L Comment:Testing performed by : [address] [address] Potassium, pl 4.0 3.3 - 4.9 mmol/L MARS Comment:Testing performed by : [address] [address] Chloride 104 97 - 110 mmol/L [facility] Comment:Testing performed by : [address], [place]., [address] CO2 26 22 - 32 mmol/L [facility] Comment:Testing performed by : [address], [place]., [address] Anion gap 9 2 - 15 mmol/L [facility] Comment:Testing performed by : [address], [place]., [address] BUN 12 6 - 25 mg/dL [facility] Comment:Testing performed by : [address], [place]., [address] Creatinine 0.67 0.60 - 1.10 mg/dL [facility] Comment:Testing performed by : [address], [place]., [address] Glucose 95 70 - 199 mg/dL [facility] Comment: Interpretive Data Fasting glucose >/= 126 [...] classification and Diagnosis of Diabetes Diabetes Care 202; 46: S19-S40. Current interpretive data was last revised 2022. Testing performed by: [address] [address] Calcium 9.2 8.5 - 10.3 mg/dL [facility] Comment:Testing performed by : [address] [address] Bilirubin, total 0.6 0.1 - 1.2 mg/dL [facility] Comment:Testing performed by : [address] [address] Protein, pl 7.1 6.5 - 8.5 g/dL MARS Comment:Testing performed by : [address], [place]., [address] Albumin 4.3 3.5 - 5.0 g/dL MARS HERNANDEZ Comment:Testing performed by : [facility], [address] [place] [address]., [address] Alk phos 79 40 - 130 Units/L MARS HERNANDEZ Comment:Testing performed by : [address] [address] ALT 16 7 - 45 Units/L MARS HERNANDEZ Comment:Testing performed by : [address] [address] AST 17 10 - 45 Units/L MARS HERNANDEZ Comment:Testing performed by : [facility], [address] [place] [address]., [address] Blood 02/01/2025 11:2 2 AM CDT 02/01/2025 11:26 AM CDT us Malinda CARVALHO LAB BLOOD ORDERABLES Final Resu lt Performing Organization Address City/State/[facility] Co de Phone Number MARS HERNANDEZ [address] [facility] Department [place] [address] from Last 3 Months Insurance Care Teams Portable Irrigation Operator Relationship Specialty Start Date End Date Miguel Lopes Jr., MD [address] [place] [address] PCP - General Internal Medicine 05/27/22
[2025-02-20 10:47] VITALS: BP 163/99; PULSE 73; RESP 16; O2SAT 97
--- OUTSIDE RECORDS SUMMARY | 2025-02-20 11:06 | XMS_ITS | Clinical Summary ---
Author Organization [facility] Address [address] [place] [address] Care Team Providers Care Digital Advisor Name Role Phone Marianne Kovacs MD, Miguel [...] advise she complete amoxicillin and see dentist [facility] Preventative health care 06/25/2021 Assessment & Plan [...] she was so elevated in ED yesterday. 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 PS: PS Report ID: [id number] Reading Location: [place] [address] Procedure Note Eve Lyons, DO - 02/01/2025 [...] Eve Lyons D.O. PS: PS Report ID: [id number] Reading Location: [place] [address] us Malinda CARVALHO IMG CT PROCEDURES Final Result * POCT hCG, urine (02/01/2025 11:45 AM CDT) [facility] HCG, ur, POC Negative Negative Lot Number [id number] QC Backgroud Clear Acceptable QC Control Line Acceptable Urine 02/01/2025 11:4 5 AM CDT us Malinda CARVALHO POINT OF CARE TEST ORDERABLES F inal Result * eGFR (02/01/2025 11:22 AM CDT) [facility] eGFR >90 >=60 mL/min/1. 73 m2 Comment: [...] was last reviewed 2021. Testing performed by: [address] [address] Blood 02/01/2025 11:2 2 AM CDT 02/01/2025 11:26 AM CDT us Malinda CARVALHO LAB BLOOD ORDERABLES Final Resu lt MARS 2606 [facility] Department [place] [address] * Differential, auto (02/01/2025 11:22 AM CDT) Neutrophil abs 4.84 1.50 - 6.50 K/cumm Comment:Testing performed by : [address] [address] Imm gran abs 0.04 0.00 - 0.10 K/cumm MARS HERNANDEZ Comment:Testing performed by : [address] [address] Lymphocyte abs 2.30 0.80 - 3.30 K/cumm MARS HERNANDEZ Comment:Testing performed by : [address] [address] Monocyte abs 0.54 0.20 - 0.80 K/cumm MARS HERNANDEZ Comment:Testing performed by : [address] [address] Eosinophil abs 0.17 0.00 - 0.50 K/cumm [facility] Comment:Testing performed by : [address] [address] Basophil abs 0.04 0.00 - 0.10 K/cumm [facility] Comment:Testing performed by : [address] [address] Neutrophil pct 61.1 % [facility] Comment: Interpretive Data Percent cell count reference ranges are not reported, since discordance with absolute values may lead to misinterpretation of CBC data. Current Interpretive Data was last revised on 2017. Testing performed by: [address] [address] Imm gran pct 0.5 % [facility] Comment: Interpretive Data Percent cell count reference ranges are not reported, since discordance with absolute values may lead to misinterpretation of CBC data. Current Interpretive Data was last revised on 2017. Testing performed by: [address] [address] Lymphocyte pct 29.0 % [facility] Comment: Interpretive Data Percent cell count reference ranges are not reported, since discordance with absolute values may lead to misinterpretation of CBC data. Current Interpretive Data was last revised on 2017. Testing performed by: [address] [address] Monocyte pct 6.8 % [facility] Comment: Interpretive Data Percent cell count reference ranges are not reported, since discordance with absolute values may lead to misinterpretation of CBC data. Current Interpretive Data was last revised on 2017. Testing performed by: [address] [address] Eosinophil pct 2.1 % [facility] Comment: Interpretive Data Percent cell count reference ranges are not reported, since discordance with absolute values may lead to misinterpretation of CBC data. Current Interpretive Data was last revised on 2017. Testing performed by: [address] [address] Basophil pct 0.5 % [facility] Comment: Interpretive Data Percent cell count reference ranges are not reported, since discordance with absolute values may lead to misinterpretation of CBC data. Current Interpretive Data was last revised on 2017. Testing performed by: [address] [address] Blood 02/01/2025 11:2 2 AM CDT 02/01/2025 11:26 AM CDT Malinda CARVALHO LAB BLOOD ORDERABLES Final Resu lt MARS 4507 [facility] Department [place] [address] * (ABNORMAL) Urinalysis reflex to microscopic and culture Urine (02/01/2025 11:22 AM CDT) Color, ur Yellow Yellow Comment:Testing performed by : [address] [address] Clarity, ur Clear Clear MARS Comment:Testing performed by : [address] [address] Specific gravity, ur 1.008 1.003 - 1.030 MARS Comment:Testing performed by : [address] [address] pH, urine 7.0 MARS Comment: Interpretive Data U rine pH is affected by diet, medications, systemic acid-base disturbances, and renal tubular function. pH may affect urinary stone formation. For example, urine pH below 6.0 may help reduce the tendency for calcium phosphate stones and pH greater than 6.0 may reduce the tendency for uric acid stone formation. Source: [facility] [employer] Current Interpretive Data was last revised on 2017 Testing performed by: [address] [address] Protein, ur ql Negative Negative MARS Comment:Testing performed by : [address] [address] Glucose, ur ql Negative Negative MARS Comment:Testing performed by : [address] [address] Ketones, ur Negative Negative MARS Comment:Testing performed by : [address] [address] Bilirubin, ur Negative Negative MARS HERNANDEZ Comment:Testing performed by : [facility], [address] [place] [address], [place]., [address] Blood, ur 2+(A) Negative MARS HERNANDEZ Comment:Testing performed by : [address], [place]., [address] Urobilinogen, ur <2.0 <2.0 mg/dL MARS HERNANDEZ Comment:Testing performed by : [address], [place]., [address] Nitrite, ur Negative Negative MARS HERNANDEZ Comment:Testing performed by : [address], [place]., [address] Leukocyte esterase, ur Negative Negative MARS HERNANDEZ Comment:Testing performed by : [address] [address] UA reflex comment Reflex to microscopic UA will be performed. MARS HERNANDEZ Comment:Testing performed by : [address] [address] Urine 02/01/2025 11:2 2 AM CDT 02/01/2025 11:26 AM CDT Malinda CARVALHO LAB MICROBIOLOGY - GENERAL MARCEL EASTON Final Result MARS 7023 [facility] Department of Laboratories [place], [place] [id number] * CBC with auto differential (02/01/2025 11:22 AM CDT) Pathologist [facility] WBC 7.93 3.80 - 9.90 K/cumm Comment:Testing performed by : [address] [address] Hgb 13.7 11.9 - 15.5 g/dL MARS HERNANDEZ Comment:Testing performed by : [address] [address] Hct 40.8 35.6 - 45.5 % MARS HERNANDEZ Comment:Testing performed by : [address] [address] Plt 250 150 - 400 K/cumm MARS HERNANDEZ Comment:Testing performed by : [address] [address] MPV 11.3 9.1 - 12.3 fL MARS HERNANDEZ Comment:Testing performed by : [address] [address] RBC 4.28 3.90 - 5.20 M/cumm MARS HERNANDEZ Comment:Testing performed by : [address] [address] MCV 95.3 81.3 - 96.4 fL MARS Comment:Testing performed by : [address] [address] MCH 32.0 27.1 - 33.3 pg MARS HERNANDEZ Comment:Testing performed by : [address] [address] MCHC 33.6 32.3 - 35.7 g/dL MARS Comment:Testing performed by : [address] [address] RDW CV 12.5 11.1 - 14.9 % MARS Comment:Testing performed by : [address] [address] RDW SD 43.5 35.7 - 48.1 fL MARS Comment:Testing performed by : [address] [address] NRBC abs 0.00 0.00 - 0.01 K/cumm MARS Comment:Testing performed by : [address], [address] Blood 02/01/2025 11:2 2 AM CDT 02/01/2025 11:26 AM CDT us Malinda CARVALHO LAB BLOOD ORDERABLES Final Resu lt MARS HERNANDEZ 76[address] [facility] Department [place] [address] * (ABNORMAL) Urinalysis, microscopic only (02/01/2025 11:22 AM CDT) WBC, ur 0-5 0 - 5 /HPF Comment:Testing performed by : [address] [address] RBC, ur 6-10(A) 0 - 2 /HPF MARS HERNANDEZ Comment:Testing performed by : [address] [address] Epithelial cells, squamous, ur >50(A) 0 - 5 /HPF MARS HERNANDEZ Comment:Testing performed by : [address] [address] Culture Reflex Comment Reflex conditions for urine culture (WBC >10) not met. MARS HERNANDEZ Comment:Testing performed by : [address], [place]., [address] Urine 02/01/2025 11:2 2 AM CDT 02/01/2025 11:26 AM CDT us Malinda CARVALHO LAB URINE ORDERABLES Final Resu lt MARS [address] Department [place] [address] * Comprehensive metabolic panel (02/01/2025 11:22 AM CDT) Sodium 139 135 - 145 mmol/L Comment:Testing performed by : [address] [address] Potassium, pl 4.0 3.3 - 4.9 mmol/L MARS HERNANDEZ Comment:Testing performed by : [address] [address] Chloride 104 97 - 110 mmol/L MARS Comment:Testing performed by : [address] [address] CO2 26 22 - 32 mmol/L MARS HERNANDEZ Comment:Testing performed by : [address] [address] Anion gap 9 2 - 15 mmol/L MARS HERNANDEZ Comment:Testing performed by : [address] [address] BUN 12 6 - 25 mg/dL MARS HERNANDEZ Comment:Testing performed by : [address] [address] Creatinine 0.67 0.60 - 1.10 mg/dL MARS Comment:Testing performed by : [address] [address] Glucose 95 70 - 199 mg/dL MARS [...] was last revised 2022. Testing performed by: [address] [address] Calcium 9.2 8.5 - 10.3 mg/dL MARS Comment:Testing performed by : [address] [address] Bilirubin, total 0.6 0.1 - 1.2 mg/dL [facility] Comment:Testing performed by : [address] [address] Protein, pl 7.1 6.5 - 8.5 g/dL [facility] Comment:Testing performed by : [address] [address] Albumin 4.3 3.5 - 5.0 g/dL [facility] Comment:Testing performed by : [address] [address] Alk phos 79 40 - 130 Units/L MARS Comment:Testing performed by : [address] [address] ALT 16 7 - 45 Units/L MARS Comment:Testing performed by : [address] [address] AST 17 10 - 45 Units/L MARS Comment:Testing performed by : [address] [address] Blood 02/01/2025 11:2 2 AM CDT 02/01/2025 11:26 AM CDT Malinda CARVALHO LAB BLOOD ORDERABLES Final Resu lt MARS 4500 [facility] Department [place] [address] from Last 3 Months Insurance Care Teams Digital Advisor Relationship Specialty Start Date End Date Miguel Lopes Jr., MD [address] [place] [id number] PCP - General Internal Medicine 05/27/22
--- OUTSIDE RECORDS SUMMARY | 2025-02-20 11:06 | XMS_ITS | Referral Summary ---
Author Organization [facility] Address [address] [place] [address] Care Team Providers Care Direct Mail Marketer Name Role Phone Marianne Kovacs MD, Miguel Hale Primary Care Provide r Encounters Date Type Department Care Team Description 02/01/2025 11:45 AM CDT - 02/01/2025 1:37 PM CDT Emergency [facility] Emergency Department [address] [place] [address] Acute right-sided thoracic back pain (Primary [...] advise she complete amoxicillin and see dentist [facility] Preventative health care 06/25/2021 Assessment & Plan [...] she was so elevated in ED yesterday. 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 PS: PS Report ID: [id number] Reading Location: [place] [address] Procedure Note Eve Lyons, DO - 02/01/2025 [...] Eve Lyons D.O. PS: PS Report ID: [id number] Reading Location: [place] [address] [address]inda CAR[address] PROCEDURES Final Result [...] was last reviewed 2021. Testing performed by: [address] [address] Blood 02/01/2025 11:2 2 AM CDT 02/01/2025 11:26 AM CDT us Malinda CARVALHO LAB BLOOD ORDERABLES Final Resu lt MAYTESOF 0342 [facility] Department [place] [address] * Differential, auto (02/01/2025 11:22 AM CDT) Neutrophil abs 4.84 1.50 - 6.50 K/cumm Comment:Testing performed by : [address] [address] Imm gran abs 0.04 0.00 - 0.10 K/cumm [facility] Comment:Testing performed by : [address] [address] Lymphocyte abs 2.30 0.80 - 3.30 K/cumm [facility] Comment:Testing performed by : [address], [place]., [address] Monocyte abs 0.54 0.20 - 0.80 K/cumm [facility] Comment:Testing performed by : [address], [place]., [address] Eosinophil abs 0.17 0.00 - 0.50 K/cumm [facility] Comment:Testing performed by : [address] [address] Basophil abs 0.04 0.00 - 0.10 K/cumm [facility] Comment:Testing performed by : [address] [address] Neutrophil pct 61.1 % [facility] Comment: Interpretive Data Percent cell count reference ranges are not reported, since discordance with absolute values may lead to misinterpretation of CBC data. Current Interpretive Data was last revised on 2017. Testing performed by: [address] [address] Imm gran pct 0.5 % [facility] Comment: Interpretive Data Percent cell count reference ranges are not reported, since discordance with absolute values may lead to misinterpretation of CBC data. Current Interpretive Data was last revised on 2017. Testing performed by: [address] [address] Lymphocyte pct 29.0 % [facility] Comment: Interpretive Data Percent cell count reference ranges are not reported, since discordance with absolute values may lead to misinterpretation of CBC data. Current Interpretive Data was last revised on 2017. Testing performed by: [address] [address] Monocyte pct 6.8 % [facility] Comment: Interpretive Data Percent cell count reference ranges are not reported, since discordance with absolute values may lead to misinterpretation of CBC data. Current Interpretive Data was last revised on 2017. Testing performed by: [address] [address] Eosinophil pct 2.1 % MARS Comment: Interpretive Data Percent cell count reference ranges are not reported, since discordance with absolute values may lead to misinterpretation of CBC data. Current Interpretive Data was last revised on 2017. Testing performed by: [address] [address] Basophil pct 0.5 % MARS Comment: Interpretive Data Percent cell count reference ranges are not reported, since discordance with absolute values may lead to misinterpretation of CBC data. Current Interpretive Data was last revised on 2017. Testing performed by: [address] [address] Blood 02/01/2025 11:2 2 AM CDT 02/01/2025 11:26 AM CDT Malinda CARVALHO LAB BLOOD ORDERABLES Final Resu lt MARS 4500 [facility] Department [place] [address] * (ABNORMAL) Urinalysis reflex to microscopic and culture Urine (02/01/2025 11:22 AM CDT) Color, ur Yellow Yellow Comment:Testing performed by : [address] [address] Clarity, ur Clear Clear MARS Comment:Testing performed by : [address] [address] Specific gravity, ur 1.008 1.003 - 1.030 AMRS Comment:Testing performed by : [address] [address] pH, urine 7.0 MARS Comment: Interpretive Data U rine pH is affected by diet, medications, systemic acid-base disturbances, and renal tubular function. pH may affect urinary stone formation. For example, urine pH below 6.0 may help reduce the tendency for calcium phosphate stones and pH greater than 6.0 may reduce the tendency for uric acid stone formation. Source: [facility] Current Interpretive Data was last revised on 2017 Testing performed by: [facility], [address] [place] [address]., [address] Protein, ur ql Negative Negative MARS Comment:Testing performed by : [facility], [address] [place] [address], [place]., [address] Glucose, ur ql Negative Negative MARS Comment:Testing performed by : [address], [place]., [address] Ketones, ur Negative Negative MARS Comment:Testing performed by : [address], [place]., [address] Bilirubin, ur Negative Negative MARS Comment:Testing performed by : [address], [place]., [address] Blood, ur 2+(A) Negative MARS Comment:Testing performed by : [address], [place]., [address] Urobilinogen, ur <2.0 <2.0 mg/dL MARS Comment:Testing performed by : [facility], [address] [place] [address], [place]., [address] Nitrite, ur Negative Negative MARS Comment:Testing performed by : [address], [place]., [address] Leukocyte esterase, ur Negative Negative MARS Comment:Testing performed by : [address], [place]., [address] UA reflex comment Reflex to microscopic UA will be performed. MARS Comment:Testing performed by : [address] [address] Urine 02/01/2025 11:2 2 AM CDT 02/01/2025 11:26 AM CDT us Malinda CARVALHO LAB MICROBIOLOGY - GENERAL ORDE RUSTAM Final Result MARS HERNANDEZ 75[address] [facility] Department of Laboratories [place], [place] [id number] * CBC with auto differential (02/01/2025 11:22 AM CDT) WBC 7.93 3.80 - 9.90 K/cumm Comment:Testing performed by : [address], [address] Hgb 13.7 11.9 - 15.5 g/dL MARS Comment:Testing performed by : [address] [address] Hct 40.8 35.6 - 45.5 % MARS Comment:Testing performed by : [address] [address] Plt 250 150 - 400 K/cumm MARS Comment:Testing performed by : [address], [address] MPV 11.3 9.1 - 12.3 fL MARS Comment:Testing performed by : [address], [address] RBC 4.28 3.90 - 5.20 M/cumm MARS Comment:Testing performed by : [address], [address] MCV 95.3 81.3 - 96.4 fL MARS Comment:Testing performed by : [address], [address] MCH 32.0 27.1 - 33.3 pg MARS Comment:Testing performed by : [address], [address] MCHC 33.6 32.3 - 35.7 g/dL MARS Comment:Testing performed by : [address], [address] RDW CV 12.5 11.1 - 14.9 % MARS Comment:Testing performed by : [address], [address] RDW SD 43.5 35.7 - 48.1 fL MARS Comment:Testing performed by : [address], [address] NRBC abs 0.00 0.00 - 0.01 K/cumm MARS Comment:Testing performed by : [address], [address] Blood 02/01/2025 11:2 2 AM CDT 02/01/2025 11:26 AM CDT Malinda CARVALHO LAB BLOOD ORDERABLES Final Resu lt Performing Organization Address [facility] de Phone Number MARS [address] [place] [address] * (ABNORMAL) Urinalysis, microscopic only (02/01/2025 11:22 AM CDT) WBC, ur 0-5 0 - 5 /HPF Comment:Testing performed by : [address] [address] RBC, ur 6-10(A) 0 - 2 /HPF MARS Comment:Testing performed by : [address] [address] Epithelial cells, squamous, ur >50(A) 0 - 5 /HPF MARS Comment:Testing performed by : [address] [address] Culture Reflex Comment Reflex conditions for urine culture (WBC >10) not met. MARS Comment:Testing performed by : [address] [address] Urine 02/01/2025 11:2 2 AM CDT 02/01/2025 11:26 AM CDT Malinda CARVALHO LAB URINE ORDERABLES Final Resu lt Performing Organization Address [facility] de Phone Number [phone] [address] * Comprehensive metabolic panel (02/01/2025 11:22 AM CDT) Sodium 139 135 - 145 mmol/L Comment:Testing performed by : [address] [address] Potassium, pl 4.0 3.3 - 4.9 mmol/L MARS Comment:Testing performed by : [address] [address] Chloride 104 97 - 110 mmol/L [facility] Comment:Testing performed by : [address], [place]., [address] CO2 26 22 - 32 mmol/L [facility] Comment:Testing performed by : [address], [place]., [address] Anion gap 9 2 - 15 mmol/L [facility] Comment:Testing performed by : [address], [place]., [address] BUN 12 6 - 25 mg/dL [facility] Comment:Testing performed by : [address], [place]., [address] Creatinine 0.67 0.60 - 1.10 mg/dL [facility] Comment:Testing performed by : [address], [place]., [address] Glucose 95 70 - 199 mg/dL [facility] Comment: Interpretive Data Fasting glucose >/= 126 [...] was last revised 2022. Testing performed by: [address] [address] Calcium 9.2 8.5 - 10.3 mg/dL [facility] Comment:Testing performed by : [address] [address] Bilirubin, total 0.6 0.1 - 1.2 mg/dL [facility] Comment:Testing performed by : [address] [address] Protein, pl 7.1 6.5 - 8.5 g/dL MARS Comment:Testing performed by : [address], [place]., [address] Albumin 4.3 3.5 - 5.0 g/dL MARS HERNANDEZ Comment:Testing performed by : [facility], [address] [place] [address]., [address] Alk phos 79 40 - 130 Units/L MARS HERNANDEZ Comment:Testing performed by : [address] [address] ALT 16 7 - 45 Units/L MARS HERNANDEZ Comment:Testing performed by : [address] [address] AST 17 10 - 45 Units/L MARS HERNANDEZ Comment:Testing performed by : [facility], [address] [place] [address]., [address] Blood 02/01/2025 11:2 2 AM CDT 02/01/2025 11:26 AM CDT us Malinda CARVALHO LAB BLOOD ORDERABLES Final Resu lt Performing Organization Address City/State/[facility] Co de Phone Number MARS HERNANDEZ [address] [facility] Department [place] [address] from Last 3 Months Insurance Care Teams Direct Mail Marketer Relationship Specialty Start Date End Date Miguel Lopes Jr., MD [address] [place] [id number] PCP - General Internal Medicine 05/27/22
--- OUTSIDE RECORDS SUMMARY | 2025-02-20 11:06 | XMS_ITS | Clinical Summary ---
Author Organization [facility] Address [address] [place] [address] Care Team Providers Care Branch Manager Name Role Phone Unavailable Primary Care Provider Unavailabl e Source Comments [facility],non-owned Affiliates and Associated Physician Practices is amultiple site organization consisting of ambulatory clinics and hospital sitesin [place], [place], [place] and [place]. This disclosure is being madepursuant to the Care Everywhere program and may not contain all information available regarding this patient. Last updated 18.[facility] Allergies Active Allergy Reactions Criticality Noted Date [...] patient's age to complete this topic Insurance 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
--- OUTSIDE RECORDS SUMMARY | 2025-02-20 11:06 | XMS_ITS | Data Portability ---
Author Organization [facility] [employer], Main Office Address [address] [place] [address] Assessment Encounter Date Assessment Date Assessment LastModified by Organization Details LastModified Time 12/06/2023 12/06/2023 The patient gave verbal consent using TelePhonic services and the consent is documented in the medical record prior to using the service. The patient has been informed of what a TeleMedicine visit is. Patient is located at home. Provider is located at office. Names and roles of persons in addition to the patient and provider participating in telemedicine services include none. The patient had a 11 minute TeleMedicine consultation via [employer] to discuss the following: [email or web address] Not available 12/06/2023 11:13:32 Plan of Treatment Reminders Order Date Submit Date Provider Last Modified By Organization Details Last Modified Time Details Appointments None recorded. Lab lipid panel, serum [address] (Lab), [address] [place], [address], 3 12:44:08 HbA1c (hemoglobin A1c), blood [address] (Lab), [address] [place], [address], 3 12:41:21 CMP, serum or plasma [address] (Lab), [address] [place], [address], 3 12:40:39 Referral None recorded. Procedures None recorded. Surgeries None recorded. Imaging electroence phalogram 2022 023 [email or web address] Neurology Dept [facility] (New Referrals), [address], [place], [address], 3 08:49:09 Medication Orders amoxicillin 875 mg tablet 2022 023 [facility][id number], [address], [place], [place], [id number], 3 12:11:08 losartan 100 mg tablet 2022 023 [facility] #[id number], [address], [place], [place], [id number], 3 12:11:09 amlodipine 5 mg tablet 2022 023 [facility] #63269, [address], [place], [place], [id number], 3 12:11:08 gabapentin 300 mg capsule 2022 023 [facility] #[id number], [address], [place], [place], [id number], 3 12:11:07 Patient TargetsNo targets recorded. Patient Instructions Encounter Date Encounter Id Patient Instructions Last Modified By Organization Details Last Modified Time 12/06/2023 [id number] Due to the COVID-19 (Novel Coronavirus) pandemic, it is within this context (and with the understanding that this method of patient encounter is in the patient s best interest as well as the health and safety of other patients and the public) that [facility] is being provided for this patient encounter rather than a wzep-bm-lhjj visit. This patient encounter is appropriate at this time. This patient has been advised of the potential risks and limitations of this mode of treatment (including, but not limited to, the absence of in-person examination) and has agreed to be treated in a remote fashion despite these risks. Any and all of the patient s /patient s family s questions on this issue have been answered, and I have made no promises or guarantees to the patient. The patient has also been advised to contact this office for worsening conditions or problems, and seek emergency medical treatment and/or call 911 if the patient deems either necessary. HPI and/or vitals, if listed, were provided by the patient. [email or web address] Not available 12/06/2023 10:46:26 Reason for Referral None Reported. Results Created Date Observation Date Name Description Value Unit Range Abnormal Flag Note LastModifiedBy Organization Detail LastModifiedTime 03/25/2003/25/2023 XR, chest No observ ation record ed. [email or web address] [facility] [address] [place], [address], 03/28/2023 12:39:41 03/25/2003/24/2023 CT, head, w/o contr ast No observ ation record ed. [email or web address] [facility] [address] [place], [address], 03/29/2023 12:33:43 03/25/20 23 03/25/2023 MRI, brain , w/wo contr ast No observ ation record ed. [email or web address] [facility] [address] [place], [address], 03/29/2023 12:33:44 Result Notes None recorded. Problems Name Problem SNOMED Code Status Onset Date Resolution Date Notes Provider Name and Address Organization Details Recorded Time Microscopic hematuria 250039522 Active Natasha prieto [facility] 3 18:36:53 Renal failure syndrome 83326677 Active Natasha prieto [place] [facility] 3 18:36:53 Acquired polycystic kidney disease 57150797 Active 2022 Natasha prieto [place] [facility] 3 18:36:53 Essential hypertension 52662532 Active 2022 Natasha prieto [place] [facility] 3 18:36:53 Neuropathy 118495937 Active 2022 Natasha prieto [facility] 3 18:36:53 Dental abscess 367080173 Active 2022 Natasha Roberts [facility] 3 18:36:53 Neurological symptom changes 971423206 Active 2022 Thor Mclean [employer] [address], [place], [address], [facility] 3 17:00:49 Seizure disorder 236531023 Active 2022 Thor Mclean [employer] [address], [address], [place], [address], [facility] 3 16:14:30 Genital herpes simplex type 2 176462734 Active 2023 Thor Mclean [employer] [address], [address], [place], [address], [facility] 4 10:57:36 Problem Notes None recorded. Medical Equipment None Reported. Allergies Allergen ID Allergen Name Allergen Category Reaction Reaction Severity Criticality Documentation Date Start Date Code Code System Note Provider Name and Address Organization Details Recorded Time 89501 morphine medicatio n bradycard ia Not available Not available 11/30/2022 7052 [facility] 3 11:49:36 29365 magnesium sulfate medicatio n hives Not available Not available 11/30/2022 6585 [facility] 3 11:49:50 Medications Name Sig Start Date Stop Date Status Note LastModified by Organization Details LastModified Time Prescription - Renewal active Not Available Not Available No t Available cyclobenzapr ine 10 mg tablet active Not Available Not Available Not Available amoxicillin 500 mg capsule active Not Available Not Available Not Available prednisone 10 mg tablet active Not Available Not Available Not Available valacyclovir 1 gram tablet TAKE 1 TABLET BY MOUTH TWICE DAILY active Not Available Not Available No t Available hydrocodone 5 mg-acetamino phen 325 mg tablet active Not Available Not Available Not Available phenazopyrid ine 200 mg tablet TAKE 1 TABLET BY MOUTH EVERY 6 TO 8 HOURS NEEDED active Not Available Not Available No t Available ondansetron HCl 4 mg tablet TAKE 1 TABLET BY MOUTH EVERY 8 HOURS active Not Available Not Available No t Available metronidazol e 500 mg tablet TAKE 1 TABLET BY MOUTH TWICE DAILY. NO ALCOHOL UNTIL 24 HOURS AFTER LAST DOSE active Not Available Not Available No t Available amlodipine 5 mg tablet TAKE 1 TABLET BY MOUTH EVERY DAY active Not Available Not Available No t Available ciprofloxaci n 500 mg tablet Take 1 tablet every 12 hours by oral route for 2 days. active Not Available Not Available Not Available tramadol 50 mg tablet active Not Available Not Available No t Available losartan 100 mg-hydrochlo rothiazide 25 mg tablet TAKE 1 TABLET BY MOUTH DAILY active Not Available Not Available Not Available clonidine HCl 0.2 mg tablet active Not Available Not Available Not Available amoxicillin 875 mg tablet TAKE 1 TABLET BY MOUTH EVERY 12 HOURS FOR 10 DAYS active Not Available Not Available Not Available lorazepam 0.5 mg tablet active Not Available Not Available Not Available meclizine 25 mg tablet TAKE 1 TABLET BY MOUTH EVERY 8 HOURS NEEDED active Not Available Not Available No t Available hydrocodone 7.5 mg-acetamino phen 325 mg tablet TAKE 1 TABLET BY MOUTH EVERY 6 HOURS NEEDED FOR PAIN CONTROL. active Not Available Not Available No t Available paroxetine 20 mg tablet active Not Available Not Available Not Available gabapentin 300 mg capsule TAKE 1 CAPSULE BY MOUTH THREE TIMES DAILY active Not Available Not Available Not Available ondansetron 4 mg disintegrati ng tablet active Not Available Not Available No t Available losartan 100 mg tablet TAKE 1 TABLET BY MOUTH EVERY DAY active Not Available Not Available No t Available clotrimazole 1 % topical cream active Not Available Not Available Not Available naproxen 500 mg tablet active Not Available Not Available No t Available amoxicillin 875 mg-potassium clavulanate 125 mg tablet TAKE 1 TABLET BY MOUTH EVERY 12 HOURS FOR 10 DAYS active Not Available Not Available Not Available guaifenesin ER 600 mg tablet, extended release 12 hr TAKE 1 TABLET BY MOUTH EVERY 12 HOURS NEEDED FOR CONGESTION active Not Available Not Available N ot Available Vitals Date Recorded Body height Body mass index (BMI) Body weight Body temperature Heart rate Oxygen saturation Oxygen saturation in Arterial blood by Pulse oximetry Systolic blood pressure Diastolic blood pressure Provider Name and Address Organization Details Last Updated DateTime 3 167.64 cm 29.1 kg/m2 93157.6 3 g 97.9 [degF] 84 /min 99 % 99 % 122 mm[Hg] 88 mm[Hg] Ant Gonsalez CMA [facility] [employer] [facility] 11:48:36 Date Recorded Body height Body mass index (BMI) Body weight Provider Name and Address Organization Details Last Updated DateTime 12/06/2023 167.64 cm 29.4 kg/m2 51070.81 g Teri Blanco RN [facility] [employer] [facility] 12/06/2023 10:46:50 Date Recorded Body height Body mass index (BMI) Body weight Body temperature Oxygen saturation Oxygen saturation in Arterial blood by Pulse oximetry Heart rate Systolic blood pressure Diastolic blood pressure Provider Name and Address Organization Details Last Updated DateTime 167.64 cm 29.4 kg/m2 97648.8 1 g 97.8 [degF] 8 % 8 % 68 /min 142 mm[Hg] 80 mm[Hg] Leonila Medley CMA [facility] [employer] [facility] 16:44:44 Social History Question Answer Notes LastModified by [employer] Details LastModified Time Tobacco Smoking Status Former Smoker [facility] [employer] [facility] 03/30/2023 16:46:13 If You Are , What Was Your Level Of Alcohol Consumption Prior To ? None [email or web address] Information not available 03/30/2023 What Is Your Level Of Caffeine Consumption? Moderate [email or web address] Information not available 03/30/2023 Which Illicit Or Recreational Drugs Have You Used? Marion [email or web address] Information not available 03/30/2023 When Did You Quit Smoking? 6-10yearssinc elastcigarett e [email or web address] Information not available 03/30/2023 What Is Your Current Pack Years? 10-19packyear s [email or web address] Information not available 03/30/2023 Have You Ever Been Counseled For Unhealthy Alcohol Use? No [email or web address] Information not available 03/30/2023 Has Tobacco Cessation Counseling Been Provided? No [email or web address] Information not available 03/30/2023 Have You Used IV Drugs? No Information not available 03/30/2023 Sex: Unknown Functional Status Question Answer Note LastModified by [employer] Details LastModified Time Do you use any illicit or recreational drugs? Yes [email or web address] Information not available 03/30/2023 Do you or have you ever used any other forms of tobacco or nicotine? No [email or web address] Information not available 03/30/2023 What is your level of alcohol consumption? Occasional [email or web address] Information not available 03/30/2023 Mental Status None recorded. Family History Nothing Reported. Medical History No medical history recorded. Gynecological History Statement/Question Response Abnormal Pap N STIs/STDs N Do your menstrual headaches get severe N Dislike of Light during Menstrual Headac he N Current Control Method IUD Breast Problems no Sexually Active? Y Weight gain N Do you get headaches during your period N Menses Monthly N Discharge no Obstetrics History GPAL:G 0 P 0 0 0 0 Past Encounters Encounter ID Performer Location Encounter Start Date Encounter Closed Date Diagnosis/Indication Diagnosis SNOMED-CT Code Diagnosis ICD10 Code Diagnosis Note [id number] DEVEN Lenz [facility] Primary Care [facility] [address] [facility] [address] [place] [address] 11/30/2022 11:41:30 11/30/2022 12:19:12 Acquired polycystic kidney disease 23896060 N28.1 Followed by nephrology (Dr. Perea). Recheck labs. Essential hypertension 68172602 I10 Stable. She has not tolerated since addition of HCTZ. Will d/c. Plan to add amlodipine if pressures remain above 140/90. Advised to bring home cuff with her next visit to compare to in-office readings as she states pressures are higher at home. She has script of clonidine at home, advised to only use if pressures elevated as she was directed and if having to use it more often then to schedule f/u to titrate medication . Neuropathy 278741873 G62 .9 Previously on gabapentin with good results. Will restarted 300mg TID. Dental abscess 242375905 K04.7 Will schedule f/u with dentist. Diabetes m ellitus screening 610739255 Z13.1 Hyperlipid emia screening 770535041 Z13.220 [id number] JUDITH Michael [facility] Primary Care [facility] [address] [facility] [address] [place] [address] 03/30/2023 16:30:54 03/30/2023 17:34:52 Neurological symptom changes 928711502 R29.90 Describes grogginess /lack of concentrat ionNew since a week prior to seizureMay need referral to neuro after review of records Essential hypertension 97687760 I10 Pt currently stable after seizureMay need referral to cardio after review of records [id number] Joann Vernon MD [facility] Ayesha edward [address] [facility] [address] [place] [address] 12/06/2023 10:44:44 12/06/2023 11:15:59 Genital herpes simplex type 2 877319458 A60.00 -new issue-pt recently f/u with urgent care, was told that she has BV (metronida zole) and hsv type 2 (valacyclo vir)-didn' t take the antiviral d/t not understand ing use-discus sed use of antiviral during period of exacerbati on-current ly no lesions to oral/abner area, pt notes no hx-encoura ged to continue to monitor her/partne r-abstain from sexual contact during period of exacerbati on Health Concerns Section Related Observation LastModified by Organization Detai ls LastModified Time None Recorded Concern Status LastModified by Organization Details LastModified Time None Recorded Advance Directives Directive None Recorded Payers Insurance Date Sequence Insurance Name Policy Number Policy Clarke Covered Member ID Clarke Member ID Guarantor Name 12/09/2022 1 [facility] (MEDICAID HMO) [id number] Olivia Jones [id number] Olivia Jones 12/03/2023 1 [facility] (MEDICAID HMO) [id number] Olivia Jones [id number] Olivia Jones Notes Date Note Type Note Provider Name and Address Organization Details Recorded Time 11/30/2022 text/html Pt. here to hesham fuchs. She was previously seeing [facility] provider (Dr. Miguel Lopes) for the last year but states he has changed all her medications but she does not like how the changes have made her feel and he is not listening to her concerns. She has been diagnosed with polycystic kidney disease and HTN. DEVEN Lenz [address] [place] [address], [facility] [address], [place], [address], [employer] 11/30/2022 13:41:35 03/30/2023 text/html Transition Care ManagementReported bypatient.Timing:date of discharge: (03-24-23) Facility:discharged to: (home) Current Caregivers:self; friend Functional Statustaking medications as prescribed; following recommended activity level Pt was admitted to [facility] with seizures. States workplace trainer and assessor and neurologist cleared her to leave, but the hospitalist wouldn't, so she decided to leave [place]. All meds stopped were by cardiology besides tylenol and losartan-no more until approved. Reports bp has been maintaining. Does question the use of Aspirin/tylenol salvatore syndrome. Notes fogginess, forgetfulness since seizure. 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 Needs referral [facility] neuorology team consulted for her care-need referral Vomits once per day d/t vertigo Describes blurriness to vision at times Has had shingles for the last week. Blisters to pubic are and hip-have not yet ruptured Stress has been extremely high lately JUDITH Michael [address], [place], [address], [employer] 04/01/2023 18:01:54 12/06/2023 text/html pt is a phone vi sit for hsv type 2 JUDITH Michael [address], [place], [address], [employer] 12/06/2023 11:13:48 OBGyn Episode No OBEpisode recorded.
--- OUTSIDE RECORDS SUMMARY | 2025-02-20 11:06 | XMS_ITS | Continuity of Care Document ---
Author Organization [facility] Address [address] [place] [address] Phone Care Team Providers Care Commercial Lines Manager Name Role Phone Song OD, Dheeraj Unavailable Unavailable Advance Directives Directive Yes / No Effective Date File Name No Information Encounters Encounter Description Practice Location Reason(s) For Visit Diagnoses Date Provider Providers Copied on Encounter [facility], [address], [place], [place], [id number], [place] tel:[phone] SEC [facility] No Information Oct-0 9-200 2 Song OD Dheeraj. [address] , [address], [place], [address], [place]. tel:[phone] Family History Family Member Type Diagnosis Age At Onset No Information Payers Payer name Insurance type Covered green party ID Authoriza tiadriana(s) [facility] Commercial CI [id number] Social History Type Description Quantity Date Captured [...]
--- OUTSIDE RECORDS SUMMARY | 2025-02-20 11:06 | XMS_ITS | Encounter Summary ---
Author Organization [facility] Care Team Providers Care Front End Developer Javascript Html Css Name Role Phone No, Physician Primary Care Provider [phone] Leola Newell MD Primary Care Provider [phone] Marianne Kovacs MD, Miguel Hale Primary Care Provide r Encounter Details Date Type Department Care Team (Latest Contact Info) Description 09/14/2016 Orders Only [facility] Provider, MD Nahid [address] [place] [address] Social History Tobacco Use Types Packs/Day Years Used Date Smoking Tobacco: Never Assessed Comments Unknown Sex and Gender Information Value Date Recorded Sex Assigned at Not on file 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 Historical Provider Final Res ult documented in this encounter Visit Diagnoses Not on filedocumented in this encounter Care Teams Front End Developer Javascript Html Css Relationship Specialty Start Date End Date No, Physician PCP - General 06/24/21 06/24/21 Leola Newell MD [address] [place] [id number] PCP - General Internal Medicine 06/25/21 05/26/22 Miguel Lopes Jr., MD [address] [place] [address] PCP - General Internal Medicine 05/27/22 documented as of this encounter
--- OUTSIDE RECORDS SUMMARY | 2025-02-20 11:06 | XMS_ITS | Clinical Summary ---
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
--- NOTE | 2025-02-20 11:13 | ECG_ITS ---
Test Date: 2025-02-20 10:24:43 Measurements Intervals Rolla Rate: 73 P: 34 ME: 186 QRS: 14 QRSD: 108 T: 18 QT: 398 QTc: 439 Interpretive Statements SINUS RHYTHM NORMAL ELECTROCARDIOGRAM No previous ECG available for comparison Electronically Signed On 02-20-2025 12:54:02 CDT by Miguel Fiore M.D.
[2025-02-20 11:21] LABS: Hematocrit 41.8 % (37.0-47.0); Hemoglobin 13.8 g/dL (12.0-15.0); Immature Granulocyte Percent A 0.4 % (0-0.5); Lymphocytes Absolute Auto 2.20 K/mm3 (0.9-3.2); Mean Corpuscular HGB Conc 33.0 g/dl (32-36); Mean Corpuscular Hemoglobin 31.4 pg (26-34); Mean Corpuscular Volume 95.0 fl (80-100); Nucleated Red Blood Cells Absolute Auto 0.000 K/mm3 (0.0-0.012); Nucleated Red Blood Cells Perc 0.0 % (0.0-0.2); Platelet Count Result 364 k/mm3 (150-375); Red Blood Count 4.40 M/mm3 (4.2-5.4); White Blood Count 9.1 K/mm3 (4.5-10.0)
[2025-02-20 11:27] VITALS: BP 169/100; PULSE 71; RESP 15; O2SAT 99
[2025-02-20] MEDS: SODIUM CHLORIDE 0.9% IV 1,000 ML 999 ML IV CONT (11:30)
[2025-02-20] MEDS: Please add drug allergy info to patient profile. 1 EACH XX (11:30)
[2025-02-20 11:31] LABS: Alanine Aminotransferase 17 U/L (6-35); Albumin Level 4.3 g/dL (3.5-5.1); Alkaline Phosphatase 68 U/L (38-126); Anion Gap 10 mmol/L (4-12); Aspartate Amino Transferase 29 U/L (14-36); Bilirubin,Total 0.5 mg/dL (0.2-1.3); Blood Urea Nitrogen 14 mg/dL (7-17); Calcium 9.0 mg/dL (8.4-10.2); Carbon Dioxide 21 mmol/L (22-30); Chloride 109 mmol/L (98-107); Estimated CRCL calculation 132 ml/min; Estimated Glomerular Filt Rate > 60; Glucose 93 mg/dL (65-110); Potassium 3.9 mmol/L (3.4-5.0); Sodium 140 mmol/L (137-145); Total Protein 7.5 g/dL (6.3-8.2)
[2025-02-20 11:33] LABS: INR 1.0; Partial Thromboplastin Time 30.1 Seconds (22.3-36.8); Prothrombin Time 13.3 Seconds (11.1-14.7)
--- NOTE | 2025-02-20 11:40 | ED_ITS ---
HPI - Neuro Symptoms/Deficit General Chief Complaint: Recheck/Abnormal Lab/Rx Stated Complaint: ELEVATED BLOOD PRESSURE Time Seen by Provider: 02/20/25 10:36 History of Present Illness HPI Narrative: Patient is a 39-year-old female who presents to the ER with high blood pressure. She reports she was trying to establish care with a primary care provider who advised her to come to the ER because her systolic blood pressure was in the 230s. Patient reports she used to have a primary care provider who prescribed her losartan 100 mg but that primary care provider moved somewhere else so she has been out of her medication for approximately 1 week. She reports she has had some visual changes intermittently for months, but today her vision became blurry. Patient reports she has a history of high blood pressure, cysts on her kidneys, and seizures. She reports she drinks alcohol intermittently, smoke cigarettes, and uses marijuana. Patient also endorses she has had headache for the past week since she has been out of her high blood pressure medications. This time examination she rates it at a 7/10. Patient denies any numbness and tingling on 1 side of her body, weakness, shortness of breath, or chest pain. Related Data Allergies Allergy/AdvReac Type Severity Reaction Status Date / Time Opioids - Morphine Analogues Allergy Severe Anaphylaxis Verified 02/20/25 11:20 magnesium sulfate Allergy Intermediate Hives Verified 02/20/25 11:20 Review of Systems 2 Review of Systems: All systems reviewed & are unremarkable except as noted in HPI and below Exam 2 Narrative: GENERAL: Well appearing, well-nourished, non-toxic, in no acute distress. HEAD: Normocephalic, atraumatic. NECK: Supple. No adenopathy, no masses. RESPIRATORY: Airway patent, respirations nonlabored. Clear to auscultation bilaterally, no rales, rhonchi, wheezing. CARDIOVASCULAR: Regular rate and rhythm without murmurs, rubs, or gallops. Peripheral pulses 2+ and equal bilaterally. ABDOMINAL: Soft, nontender, nondistended, no hepatosplenomegaly. Normoactive BS. MUSCULOSKELETAL: Moves all extremities. Strength/ROM intact without gross deformities. SKIN: Warm, dry, normal color. No rashes. NEURO: A&O X3. Speech clear. Cranial nerves II-XII intact. No ataxic movements. PSYCHIATRIC: Tearful, verbalizes anxiety Course Vital Signs Vital signs: Vital Signs Temperature 36.9 C 02/20/25 10:26 Pulse Rate 74 02/20/25 10:26 Respiratory Rate 18 02/20/25 10:26 Blood Pressure 236/130 H 02/20/25 10:26 Pulse Oximetry 100 02/20/25 10:26 Oxygen Delivery Room Air 02/20/25 10:26 Temperature 36.9 C 02/20/25 10:26 Pulse Rate 66 02/20/25 12:24 Respiratory Rate 13 02/20/25 12:24 Blood Pressure 157/84 H 02/20/25 12:24 Pulse Oximetry 99 02/20/25 12:24 Oxygen Delivery Room Air 02/20/25 10:26 MDM - Neuro Symptoms/Deficit MDM Narrative Medical decision making narrative: Patient is a 39-year-old female who presents to the ER with high blood pressure. She reports she was trying to establish care with a primary care provider who advised her to come to the ER because her systolic blood pressure was in the 230s. Patient reports she used to have a primary care provider who prescribed her losartan 100 mg but that primary care provider moved somewhere else so she has been out of her medication for approximately 1 week. She reports she has had some visual changes intermittently for months, but today her vision became blurry. Patient reports she has a history of high blood pressure, cysts on her kidneys, and seizures. She reports she drinks alcohol intermittently, smoke cigarettes, and uses marijuana. Patient also endorses she has had headache for the past week since she has been out of her high blood pressure medications. This time examination she rates it at a 7/10. Patient denies any numbness and tingling on 1 side of her body, weakness, shortness of breath, or chest pain. Labs Ordered: CBC, CMP, TSH, INR, PTT, troponin, BNP, UA, UDS Imaging Ordered: CT head, chest x-ray Medications Ordered: 1 L normal saline IV bolus, losartan p.o. Results: Patient's white blood cell count was unremarkable. Her coags are unremarkable. Patient's chemistry indicates a chloride of 109, carbon dioxide of 21, creatinine is 0.57. Her urinalysis indicates 2+ blood (baseline for patient as she has polyps on her kidney) in trace leukocytes. Pt's visual acuity scree was R 20/40 and L 20/50. She reports she has been to an eye doctor and will follow-up with one as an outpatient. Diagnosis: Hypertension, headache Risks: HEART score: low risk HEART Score for Major Cardiac Events from [email or web address] on 02/20/2025 All calculations should be rechecked by clinician prior to use RESULT SUMMARY: 3 points Low Score (0-3 points) Risk of MACE of 0.9-1.7%. INPUTS: History ?> 1 = Moderately suspicious EKG ?> 0 = Normal Age ?> 0 = <45 Risk factors ?> 2 = >= risk factors or history of atherosclerotic disease Initial troponin ?> 0 = <=Normal limit Patient Education/Shared MDM: Results of lab work and imaging shared with patient. She endorses improvement of symptoms following medication administration. Patient strongly advised to maintain hydration status upon discharge and follow-up with their PCP on Tuesday, as planned. She will be discharged home with a short term prescription for losartan. Strict return precautions provided. Patient verbalized understanding and is in agreement with plan. Vital signs stable at time of discharge. All questions answered. Differential Diagnosis Differential diagnosis: Likely subarachnoid hemorrhage, cerebrovascular accident, transient cerebral ischemia and other (Hypertension) Lab Data Attestation: I reviewed the patient's lab results. 02/20/25 10:49 02/20/25 10:49 Labs: Lab Results 02/20/25 02/20/25 02/20/25 Range/Units 10:49 11:25 11:30 WBC 9.1 (4.5-10.0) K/mm3 RBC 4.40 (4.2-5.4) M/mm3 Hgb 13.8 (12.0-15.0) g/dL Hct 41.8 (37.0-47.0) % MCV 95.0 (80-100) fl MCH 31.4 (26-34) pg MCHC 33.0 (32-36) g/dl RDW 12.3 (11.5-14.5) % Plt Count 364 (150-375) k/mm3 MPV 10.1 (7.4-10.4) fl Immature Gran % (Auto) 0.4 (0-0.5) % Neut % (Auto) 66.1 (45.5-73.1) % Lymph % (Auto) 24.2 (18.3-44.2) % [place] % (Auto) 6.7 (2.6-8.5) % Eos % (Auto) 2.2 (0-4.4) % Baso % (Auto) 0.4 (0.2-1.2) % Lymph # (Auto) 2.20 (0.9-3.2) K/mm3 [place] # (Auto) 0.6 (0.1-0.6) K/mm3 Eos # (Auto) 0.2 (0-0.3) K/mm3 Baso # (Auto) 0.0 (0.0-0.1) K/mm3 Abs Immat Gran (auto) 0.04 H (0.00-0.031) K/mm3 Absolute Neuts (auto) 6.0 (1.3-6.7) K/mm3 Absolute Nucleated RBC 0.000 (0.0-0.012) K/mm3 Nucleated RBC % 0.0 (0.0-0.2) % PT 13.3 (11.1-14.7) Seconds INR 1.0 APTT 30.1 (22.3-36.8) Seconds Sodium 140 (137-145) mmol/L Potassium 3.9 (3.4-5.0) mmol/L Chloride 109 H (98-107) mmol/L Carbon Dioxide 21 L (22-30) mmol/L Anion Gap 10 (4-12) mmol/L BUN 14 (7-17) mg/dL Creatinine 0.57 L (0.7-1.0) mg/dL Estim Creat Clear Calc 132 ml/min Estimated GFR > 60 (59 - ) Glucose 93 (65-110) mg/dL POC Capillary Glucose 95 (65-105) mg/dl Calcium 9.0 (8.4-10.2) mg/dL Total Bilirubin 0.5 (0.2-1.3) mg/dL AST 29 (14-36) U/L ALT 17 (6-35) U/L Alkaline Phosphatase 68 (38-126) U/L Troponin I < 0.012 (0.000-0.034) ng/mL NT-Pro-B Natriuret Pep 81 (19.9-100) pg/mL Total Protein 7.5 (6.3-8.2) g/dL Albumin 4.3 (3.5-5.1) g/dL TSH 1.860 (0.465-4.680) uIU/mL Urine Color Yellow (Yellow) Urine Appearance Clear (Clear) Urine pH 6.5 (5.0-9.0) Ur Specific [place] 1.020 (1.001-1.035) Urine Protein Trace (Negative) mg/dL Urine Glucose (UA) Negative (Negative) mg/dL Urine Ketones Negative (Negative) mg/dL Ur Blood (Man) 2+ H (Negative) Urine Nitrate Negative (Negative) Urine Bilirubin Negative (Negative) Urine Urobilinogen 0.2 (<2.0) mg/dL Leukocyte Esterase Rfl Trace H (Negative) ALIA/UL Urine RBC 21-50 H (0-2) /hpf Urine WBC 0-5 (0-3) /hpf Ur Squamous Epith Cells Occasional (Few) /hpf Urine Bacteria Rare /hpf Urine Casts 0-2 Urine Opiates Screen Negative (Negative) Urine Methadone Screen Negative (Negative) Ur Barbiturates Screen Negative (Negative) Ur Phencyclidine Scrn Negative (Negative) Ur Amphetamine Screen Negative (Negative) U Benzodiazepines Scrn Negative (Negative) Urine Cocaine Screen Negative (Negative) U Cannabinoids Screen Positive A (Negative) Imaging Data Attestation: I personally reviewed and interpreted this imaging study as follows: Radiologist's impression: Impressions Head CT 02/20/25 11:47 IMPRESSION: 1. Normal head CT. Chest X-Ray 02/20/25 11:52 IMPRESSION: No focal infiltrate or effusion. Discharge Plan Discharge Clinical Impression: Hypertension, Headache Patient Disposition: Home Condition: Stable Instructions: Antibiotic Form, Hypertensive Crisis (ED) Additional Instructions: Please return to the ER with any worsening symptoms. Follow-up with primary care provider on Tuesday, as planned. Take all medications as prescribed, including regularly scheduled medications. You may take the prescribed losartan until you follow-up your doctor. Please take Tylenol to control your headache pain. Remember to stay hydrated with water. Patient Language: Persian Prescriptions: New losartan 100 mg tablet 100 mg PO DAILY Qty: 30 0RF Follow-up/Referrals: Jarrell Torres MD [Primary Care Provider] - Stand Alone Forms: Work/School Release IP Time of Disposition: 12:55
[2025-02-20 11:44] LABS: Troponin I < 0.012 ng/mL (0.000-0.034)
[2025-02-20 11:47] LABS: Add Urine Microscopic? YES; Appearance Urine Clear (Clear); Glucose Urine UA Negative (Negative); Leukocyte Esterase Ur Trace LEU/UL (Negative); Nitrate Urine Negative (Negative); Non Pathogenic Casts 0-2; Specific Grav Ur 1.020 (1.001-1.035)
[2025-02-20 12:02] LABS: NT Pro B Type Natriuretic Pept 81 pg/mL (19.9-100); Thyroid Stimulating Hormone 1.860 uIU/mL (0.465-4.680)
[2025-02-20 12:08] LABS: Cannabinoid Screen Urine Positive (Negative)
[2025-02-20 12:24] VITALS: BP 157/84; PULSE 66; RESP 13; O2SAT 99
[2025-02-20] MEDS: LOSARTAN POTASSIUM 100 MG TABLET PO (13:03)
[2025-02-20 13:08] VITALS: BP 151/90
[2025-02-20 13:10] VITALS: BP 151/93; PULSE 62; RESP 15; O2SAT 98
== END 2025-02-20 13:10 | disposition home or self-care (01) ==
PROVIDERS: Emergency Provider Registered Nurse; PCP Emergency Medicine
DX: I10 Essential (primary) hypertension (principal); R51.9 Headache, unspecified; T46.5X6A Underdosing of other antihypertensive drugs, initial encounter; Z91.138 Patient's unintentional underdosing of medication regimen for other reason; N28.1 Cyst of kidney, acquired; F17.210 Nicotine dependence, cigarettes, uncomplicated
CPT/HCPCS: 36415; 70450; 71046; 80053; 80307; 81001; 82948; 83880; 84443; 84484; 85025; 85610; 85730; 93005; 96360; 99284; A9270; J7030